=== PATIENT | male | born 1945 | race African-American/Black ===

== ENCOUNTER 2016-09-29 04:58 | Inpatient (IN) | payer MEDICARE, BC ==
[~2016-09-29] VITALS: Ht 182.9 cm; Wt 113.4 kg
[~2016-09-29 04:58] MED LIST: ALBU2TAB4 PO; ALLO100T PO; AMLO10TA80 PO; ASPI-1079 PO; FERR324T11 PO; FLUT1DIS INH; FLUT9.9S NS; FURO-151 PO; GABA-290 PO; HYDR-3927 PO; INSASP SUBCUT; LIP40 PO; LISI40TA4 PO; LORA10CA PO; LOSA50TA20 PO; METO-298 PO; POTA10CA42 PO; RED600CA5 PO; TAMS-11 PO
[2016-09-29] MEDS ORDERED: SODIUM CHLORIDE 0.9% 1,000 ML IV ONE (05:21)
[2016-09-29] MEDS ORDERED: ACETAMINOPHEN 325MG TABLET PO STA (05:21)
[2016-09-29] MEDS ORDERED: AZITHROMYCIN 500 MG in DEXT 5% WATER 250 ML IV ONE (05:30)
[2016-09-29] MEDS ORDERED: CEFTRIAXONE 1 G PREMIX 50 ML IV ONE (05:30)
[2016-09-29 05:43] LABS: HEMOGLOBIN. 10.7 g/dL (14.0-18.0); MEAN CORPUSCULAR HEMOGLOBIN 22.2 pg (28.0-32.0); MEAN CORPUSCULAR HGB CONC 30.7 g/dL (31.0-37.0); MEAN CORPUSCULAR VOLUME 72.5 fL (80.0-94.0); MEAN PLATELET VOLUME 7.9 fl (7.4-10.4); PLATELET 257 x1000/uL (130-400); RED BLOOD CELL COUNT 4.82 mill/uL (4.7-6.1); RED CELL DISTRIBUTION WIDTH 20.4 % (11.6-14.6); WHITE BLOOD COUNT 26.5 x1000/uL (4.5-11.0)
[2016-09-29 05:49] LABS: DIFFERENTIAL COMMENT 1
[2016-09-29 05:51] LABS: INR 1.1; PROTHROMBIN TIME 11.3 sec
[2016-09-29 06:00] LABS: ALANINE AMINOTRANSFERASE 13 IU/L (13-61); ALBUMIN 3.6 g/dL (3.4-5.0); ANION GAP 16; CALCIUM 8.9 mg/dL (8.5-10.1); CARBON DIOXIDE 28 mEq/L (21-32); CHLORIDE 99 mEq/L (98-107); INDEX HEMOLYSI 1 (1-3); INDEX ICTERIC 1 (1-4); INDEX LIPEMIC 1 (1-3); UREA NITROGEN BLOOD 47 mg/dL (7-21); eGFR 9 mL/min (>60)
[2016-09-29 06:02] LABS: TROPONIN I 0.03 ng/mL (0.00-0.04)
[2016-09-29 06:22] LABS: BG CARBOXYHEMOGLOBIN 0.3 % (0.5-1.5); BG FRACTION INSPIRED OXYGEN 28; BG HCO3 ACT 24.1 mmol/L (22.0-26.0); BG METHEMOGLOBIN 0.4 % (0.0-1.5); BG OXYHEMOGLOBIN 97.3 % (94.0-97.0); BG PCO2 33.2 mmHg (35.0-45.0); BG PH 7.478 (7.350-7.450); BG PO2 111.7 mmHg (75.0-100.0); BG SAMPLE SITE RIGHT RADIAL; BG TOTAL HEMOGLOBIN 11.9 g/dL (12.0-18.0); BG VENT MODE NASAL CANNULA
[2016-09-29 08:20] LABS: CLARITY URINE CLEAR (CLEAR); COLOR URINE YELLOW (YELLOW); GLUCOSE URINE 2+ (NEGATIVE); KETONES URINE TRACE (NEGATIVE); LEUKOCYTE ESTERASE URINE NEGATIVE (NEGATIVE); NITRITE URINE NEGATIVE (NEGATIVE); OCCULT BLOOD URINE 2+ (NEGATIVE); PH URINE 7.5 (4.5-8.0); PROTEIN URINE 3+ (NEGATIVE); SPECIFIC GRAVITY URINE 1.015 (1.005-1.030)
[2016-09-29 08:23] LABS: BACTERIA URINE NONE SEEN; CALCIUM PHOSPHATE CRYSTALS UR NONE SEEN /lpf; SQUAMOUS EPITHELIAL CELL URINE NONE SEEN /lpf (RARE/1+); WAXY CASTS URINE NONE SEEN /lpf; WBC URINE NONE SEEN /hpf (0-2); YEAST URINE NONE SEEN
[2016-09-29 08:36] LABS: PLATELET ESTIMATE NORMAL
[2016-09-29 08:37] LABS: ANISOCYTOSIS 2+
[2016-09-29] MEDS ORDERED: CLONIDINE 0.1MG TABLET PO PRN (08:45)
[2016-09-29] MEDS ORDERED: ACETAMINOPHEN 325MG TABLET PO PRN (08:45)
[2016-09-29] MEDS ORDERED: ONDANSETRON HCL 4MG/2ML VIAL IV PRN (08:45)
[2016-09-29] MEDS ORDERED: GUAIFENESIN 200MG/10ML SUGAR FREE UDC PO PRN (08:45)
[2016-09-29] MEDS ORDERED: HYDROCODONE/ACETAMINOPHEN 5/325MG TABLET PO PRN (09:00)
[2016-09-29 14:30] VITALS: BP 146/67
[2016-09-29 14:40] VITALS: BP 146/67
[2016-09-29] MEDS: AMLODIPINE 10MG TABLET PO SCH (15:05)
[2016-09-29] MEDS: TAMSULOSIN HCL 0.4MG SR CAPSULE PO SCH (15:05)
[2016-09-29] MEDS: FUROSEMIDE 40MG TABLET PO SCH (15:05)
[2016-09-29] MEDS: ASPIRIN 81MG TABLET PO SCH (15:06)
[2016-09-29] MEDS: LOSARTAN POTASSIUM 50 MG TABLET PO SCH (15:06)
[2016-09-29] MEDS: ALLOPURINOL 100 MG TABLET PO SCH (15:06)
[2016-09-29] MEDS: LISINOPRIL 40MG TABLET PO SCH (15:07)
[2016-09-29] MEDS: ALBUTEROL 2MG TABLET PO SCH (15:07)
[2016-09-29] MEDS: HYDROMORPHONE HCL/PF 2MG/ML CPJ IV PRN (15:08)
[2016-09-29] MEDS ORDERED: DEXTROSE 50% WATER 50ML SYRINGE IV PRN (15:15)
[2016-09-29 16:00] VITALS: BP 123/56
[2016-09-29 16:24] LABS: TROPONIN I 0.03 ng/mL (0.00-0.04)
[2016-09-29] MEDS: PIPERACILLIN/TAZ 2.25G PREMIX 50 ML IV SCH (16:41)
[2016-09-29] MEDS: ENOXAPARIN 30MG/0.3ML SYR SUBCUT SCH (16:41)
[2016-09-29] MEDS ORDERED: LEVOFLOXACIN 500MG PREMIX 100 ML IV SCH (17:00)
[2016-09-29] MEDS ORDERED: VANCOMYCIN 1,250 MG in DEXT 5% WATER 250 ML IV SCH (17:00)
[2016-09-29] MEDS: BLOOD SUGAR DIAGNOSTIC STRIP TEST SCH ×2 (17:05→21:23)
[2016-09-29] MEDS: METOPROLOL TARTRATE 25MG TABLET PO SCH (18:19)
[2016-09-29] MEDS: INSULIN LISPRO 100 UNITS/ML SUBCUT SCH ×2 (18:21→21:35)
[2016-09-29 20:00] VITALS: BP 102/49
[2016-09-29] MEDS: IPRATROPIUM/ALBUTEROL 0.5-3(2.5)MG/3ML NEB HHN SCH (20:46)
[2016-09-29] MEDS ORDERED: ATORVASTATIN CALCIUM 40MG TABLET PO SCH (21:00)
[2016-09-30] VITALS: BP 116/64
[2016-09-30 00:28] LABS: CREATINE KINASE MB FRACTION 1.9 ng/mL (0.5-3.6); TROPONIN I 0.03 ng/mL (0.00-0.04)
[2016-09-30] MEDS: IPRATROPIUM/ALBUTEROL 0.5-3(2.5)MG/3ML NEB HHN SCH ×6 (01:01→20:55)
[2016-09-30] MEDS: PIPERACILLIN/TAZ 2.25G PREMIX 50 ML IV SCH ×3 (02:32→16:36)
[2016-09-30 04:00] VITALS: BP 112/60
[2016-09-30] MEDS: METOPROLOL TARTRATE 25MG TABLET PO SCH ×2 (06:00→17:03)
[2016-09-30 06:21] LABS: BASOPHILS % 0.4 % (0.0-2.0); DIFFERENTIAL COMMENT 0; EOSINOPHILS % 0.4 % (0.0-5.0); HEMATOCRIT. 31.7 % (42.0-52.0); HEMOGLOBIN. 9.6 g/dL (14.0-18.0); LYMPHOCYTES % 8.9 % (20.0-50.0); MEAN CORPUSCULAR HEMOGLOBIN 22.1 pg (28.0-32.0); MEAN CORPUSCULAR HGB CONC 30.3 g/dL (31.0-37.0); MEAN CORPUSCULAR VOLUME 73.1 fL (80.0-94.0); MEAN PLATELET VOLUME 8.2 fl (7.4-10.4); MONOCYTES % 8.5 % (2.0-8.0); NEUTROPHILS % 81.8 % (40.0-76.0); PLATELET 219 x1000/uL (130-400); RED BLOOD CELL COUNT 4.34 mill/uL (4.7-6.1); RED CELL DISTRIBUTION WIDTH 20.6 % (11.6-14.6); WHITE BLOOD COUNT 16.6 x1000/uL (4.5-11.0)
[2016-09-30] MEDS: OMEPRAZOLE 20MG CAPSULE EXTENDED RELEASE PO SCH (06:39)
[2016-09-30] MEDS: BLOOD SUGAR DIAGNOSTIC STRIP TEST SCH ×3 (06:40→21:36)
[2016-09-30 06:49] LABS: ALANINE AMINOTRANSFERASE 15 IU/L (13-61); ALBUMIN 2.6 g/dL (3.4-5.0); ANION GAP 17; CALCIUM 8.3 mg/dL (8.5-10.1); CARBON DIOXIDE 28 mEq/L (21-32); CHLORIDE 96 mEq/L (98-107); CREATINE KINASE 362 IU/L (39-308); INDEX HEMOLYSI 1 (1-3); INDEX ICTERIC 1 (1-4); INDEX LIPEMIC 1 (1-3); LIPASE 144 IU/L (73-393); PHOSPHORUS 4.5 mg/dL (2.5-4.9); UREA NITROGEN BLOOD 61 mg/dL (7-21); eGFR 8 mL/min (>60)
[2016-09-30 07:00] LABS: THYROID STIMULATING HORMONE 0.23 uIU/mL (0.36-3.74)
[2016-09-30 08:00] VITALS: BP 135/64
[2016-09-30] MEDS: LOSARTAN POTASSIUM 50 MG TABLET PO SCH (08:14)
[2016-09-30] MEDS: LISINOPRIL 40MG TABLET PO SCH (08:14)
[2016-09-30] MEDS: AMLODIPINE 10MG TABLET PO SCH (08:14)
[2016-09-30] MEDS: FUROSEMIDE 40MG TABLET PO SCH (08:14)
[2016-09-30] MEDS: FOLIC ACID/VITAMIN B COMP W-C TABLET PO SCH (08:24)
[2016-09-30] MEDS: ASPIRIN 81MG TABLET PO SCH (08:24)
[2016-09-30] MEDS: ALBUTEROL 2MG TABLET PO SCH (08:24)
[2016-09-30] MEDS: ALLOPURINOL 100 MG TABLET PO SCH (08:24)
[2016-09-30] MEDS: TAMSULOSIN HCL 0.4MG SR CAPSULE PO SCH (08:26)
[2016-09-30] MEDS: HYDROMORPHONE HCL/PF 2MG/ML CPJ IV PRN ×2 (08:26→16:37)
[2016-09-30] MEDS: INSULIN LISPRO 100 UNITS/ML SUBCUT SCH ×4 (08:27→21:56)
[2016-09-30] MEDS ORDERED: FOLIC ACID/VITAMIN B COMP W-C TABLET PO SCH (09:00)
[2016-09-30] MEDS: SILVER SULFADIAZINE 1% CREAM 50GM TOP SCH (10:04)
[2016-09-30 12:00] VITALS: BP 112/45
[2016-09-30] MEDS ORDERED: VANCOMYCIN 1 G PREMIX 200 ML IV SCH (13:00)
[2016-09-30] MEDS: ENOXAPARIN 30MG/0.3ML SYR SUBCUT SCH (14:53)
[2016-09-30 16:00] VITALS: BP 118/56
[2016-09-30] MEDS ORDERED: INSULIN LISPRO 100 UNITS/ML SUBCUT NR (17:15)
[2016-09-30] MEDS ORDERED: INSULIN DETEMIR UD 100 UNITS/ML SYR SUBCUT NR (18:00)
[2016-09-30 20:00] VITALS: BP 115/60
[2016-10-01] VITALS: BP 136/62
[2016-10-01] MEDS: IPRATROPIUM/ALBUTEROL 0.5-3(2.5)MG/3ML NEB HHN SCH ×3 (00:41→13:05)
[2016-10-01 04:00] VITALS: BP 138/60
[2016-10-01] MEDS: METOPROLOL TARTRATE 25MG TABLET PO SCH (06:00)
[2016-10-01 06:37] LABS: CALCIUM 8.9 mg/dL (8.5-10.1)
[2016-10-01] MEDS: PIPERACILLIN/TAZ 2.25G PREMIX 50 ML IV SCH ×2 (06:59→09:00)
[2016-10-01] MEDS: BLOOD SUGAR DIAGNOSTIC STRIP TEST SCH ×2 (07:10→12:20)
[2016-10-01] MEDS: OMEPRAZOLE 20MG CAPSULE EXTENDED RELEASE PO SCH (07:12)
[2016-10-01 07:15] LABS: BASOPHILS % 0.5 % (0.0-2.0); DIFFERENTIAL COMMENT 0; EOSINOPHILS % 1.8 % (0.0-5.0); HEMATOCRIT. 32.7 % (42.0-52.0); HEMOGLOBIN. 10.2 g/dL (14.0-18.0); LYMPHOCYTES % 10.7 % (20.0-50.0); MEAN CORPUSCULAR HEMOGLOBIN 22.5 pg (28.0-32.0); MEAN CORPUSCULAR HGB CONC 31.1 g/dL (31.0-37.0); MEAN CORPUSCULAR VOLUME 72.4 fL (80.0-94.0); MEAN PLATELET VOLUME 8.5 fl (7.4-10.4); MONOCYTES % 10.8 % (2.0-8.0); NEUTROPHILS % 76.2 % (40.0-76.0); PLATELET 212 x1000/uL (130-400); RED BLOOD CELL COUNT 4.51 mill/uL (4.7-6.1); RED CELL DISTRIBUTION WIDTH 20.7 % (11.6-14.6); WHITE BLOOD COUNT 11.5 x1000/uL (4.5-11.0)
[2016-10-01 08:00] VITALS: BP 116/51
[2016-10-01] MEDS ORDERED: HYDROCODONE/ACETAMINOPHEN 5/325MG TABLET PO NR (08:45)
[2016-10-01] MEDS ORDERED: HYDROCODONE/ACETAMINOPHEN 5/325MG TABLET PO PRN (08:45)
[2016-10-01] MEDS: AMLODIPINE 10MG TABLET PO SCH (09:00)
[2016-10-01] MEDS: LISINOPRIL 40MG TABLET PO SCH (09:00)
[2016-10-01] MEDS: INSULIN LISPRO 100 UNITS/ML SUBCUT SCH ×2 (09:02→13:33)
[2016-10-01] MEDS: TAMSULOSIN HCL 0.4MG SR CAPSULE PO SCH (09:05)
[2016-10-01] MEDS: ALBUTEROL 2MG TABLET PO SCH (09:06)
[2016-10-01] MEDS: FUROSEMIDE 40MG TABLET PO SCH (09:06)
[2016-10-01] MEDS: FOLIC ACID/VITAMIN B COMP W-C TABLET PO SCH (09:06)
[2016-10-01] MEDS: LOSARTAN POTASSIUM 50 MG TABLET PO SCH (09:07)
[2016-10-01] MEDS: ALLOPURINOL 100 MG TABLET PO SCH (09:07)
[2016-10-01] MEDS: ASPIRIN 81MG TABLET PO SCH (09:07)
[2016-10-01] MEDS: SILVER SULFADIAZINE 1% CREAM 50GM TOP SCH (09:26)
[2016-10-01 12:31] VITALS: BP 105/58
== END 2016-10-01 15:50 | DRG 871 ==
LOC: ER 05:02 → 6WST 08:21
PROVIDERS: ADMIT Internal Medicine Geriatric Medicine; ATTEND Internal Medicine Geriatric Medicine
PROC: 5A1D00Z (ICD-10-PCS; principal; 2016-09-30)
DX: A41.9 Sepsis, unspecified organism (principal); G92 Toxic encephalopathy; N18.6 End stage renal disease; I13.2 Hypertensive heart and chronic kidney disease with heart failure and with stage 5 chronic kidney disease, or end stage renal disease; E44.1 Mild protein-calorie malnutrition; I50.32 Chronic diastolic (congestive) heart failure; L03.116 Cellulitis of left lower limb; L03.115 Cellulitis of right lower limb; E66.01 Morbid (severe) obesity due to excess calories; G47.33 Obstructive sleep apnea (adult) (pediatric); E11.42 Type 2 diabetes mellitus with diabetic polyneuropathy; E11.51 Type 2 diabetes mellitus with diabetic peripheral angiopathy without gangrene; J44.9 Chronic obstructive pulmonary disease, unspecified; K59.09 Other constipation; M19.90 Unspecified osteoarthritis, unspecified site; E11.622 Type 2 diabetes mellitus with other skin ulcer; I70.90 Unspecified atherosclerosis; E11.22 Type 2 diabetes mellitus with diabetic chronic kidney disease; L98.499 Non-pressure chronic ulcer of skin of other sites with unspecified severity; D63.8 Anemia in other chronic diseases classified elsewhere; E21.1 Secondary hyperparathyroidism, not elsewhere classified; G31.84 Mild cognitive impairment of uncertain or unknown etiology; L89.899 Pressure ulcer of other site, unspecified stage; L98.491 Non-pressure chronic ulcer of skin of other sites limited to breakdown of skin; I83.009 Varicose veins of unspecified lower extremity with ulcer of unspecified site; Z99.2 Dependence on renal dialysis; Z82.49 Family history of ischemic heart disease and other diseases of the circulatory system; Z83.3 Family history of diabetes mellitus; Z87.891 Personal history of nicotine dependence; Z79.899 Other long term (current) drug therapy; Z79.4 Long term (current) use of insulin; Z79.82 Long term (current) use of aspirin; Z68.33 Body mass index [BMI] 33.0-33.9, adult
CPT/HCPCS: 36415; 36600; 71010; 73590; 73630; 80048; 80053; 80061; 81001; 82375; 82550; 82553; 82805; 82962; 83036; 83605; 83690; 83970; 84100; 84443; 84484; 85025; 85610; 87040; 87086; 92610; 93005; 93306; 93880; 93923; 94640; 94664; 96365; 96366; 96367; 96372; 96375; 97162; 99285; J0456; J0696; J1170; J1650; J1815; J1956; J2543; J3370; J7030; J7040; J7060; J7620; A4315

== ENCOUNTER 2016-10-01 15:40 | Inpatient (IN) | payer MEDICARE, BC ==
[~2016-10-01] VITALS: Ht 182 cm; Wt 113.4 kg
[2016-10-01 17:49] VITALS: BP 119/57
[2016-10-01] MEDS ORDERED: DEXTROSE 50% WATER 50ML SYRINGE IV PRN (18:00)
[2016-10-01] MEDS ORDERED: IPRATROPIUM/ALBUTEROL 0.5-3(2.5)MG/3ML NEB HHN PRN (18:30)
[2016-10-01] MEDS ORDERED: LEVOFLOXACIN 500MG PREMIX 100 ML IV SCH (20:00)
[2016-10-01] MEDS ORDERED: IPRATROPIUM/ALBUTEROL 0.5-3(2.5)MG/3ML NEB HHN SCH (20:00)
[2016-10-01] MEDS: BLOOD SUGAR DIAGNOSTIC STRIP TEST SCH (21:00)
[2016-10-01] MEDS: ATORVASTATIN CALCIUM 40MG TABLET PO SCH (22:33)
[2016-10-01] MEDS: METOPROLOL TARTRATE 25MG TABLET PO SCH (22:35)
[2016-10-01] MEDS: INSULIN LISPRO 100 UNITS/ML SUBCUT SCH (22:42)
[2016-10-01] MEDS ORDERED: INSULIN LISPRO 100 UNITS/ML SUBCUT NR (23:00)
[2016-10-02] MEDS ORDERED: INSULIN DETEMIR UD 100 UNITS/ML SYR SUBCUT NR (01:00)
[2016-10-02] MEDS: PIPERACILLIN/TAZ 2.25G PREMIX 50 ML IV SCH ×3 (01:50→13:02)
[2016-10-02] MEDS: FAMOTIDINE 20MG TABLET PO SCH (06:45)
[2016-10-02] MEDS: BLOOD SUGAR DIAGNOSTIC STRIP TEST SCH ×4 (06:45→21:00)
[2016-10-02] MEDS: INSULIN LISPRO 100 UNITS/ML SUBCUT SCH ×7 (06:55→21:00)
[2016-10-02 06:58] LABS: CALCIUM 8.9 mg/dL (8.5-10.1); PHOSPHORUS 3.3 mg/dL (2.5-4.9)
[2016-10-02] MEDS ORDERED: OMEPRAZOLE 20MG CAPSULE EXTENDED RELEASE PO SCH (07:00)
[2016-10-02 07:09] LABS: BASOPHILS % 0.4 % (0.0-2.0); DIFFERENTIAL COMMENT 0; EOSINOPHILS % 1.3 % (0.0-5.0); HEMATOCRIT. 31.1 % (42.0-52.0); HEMOGLOBIN. 9.9 g/dL (14.0-18.0); LYMPHOCYTES % 10.6 % (20.0-50.0); MEAN CORPUSCULAR HEMOGLOBIN 22.8 pg (28.0-32.0); MEAN CORPUSCULAR HGB CONC 31.7 g/dL (31.0-37.0); MEAN CORPUSCULAR VOLUME 71.7 fL (80.0-94.0); MEAN PLATELET VOLUME 8.9 fl (7.4-10.4); MONOCYTES % 9.8 % (2.0-8.0); NEUTROPHILS % 77.9 % (40.0-76.0); PLATELET 231 x1000/uL (130-400); RED BLOOD CELL COUNT 4.33 mill/uL (4.7-6.1); RED CELL DISTRIBUTION WIDTH 20.1 % (11.6-14.6); WHITE BLOOD COUNT 9.4 x1000/uL (4.5-11.0)
[2016-10-02 08:00] VITALS: BP 117/51
[2016-10-02] MEDS ORDERED: HYDROCODONE/ACETAMINOPHEN 5/325MG TABLET PO NR (08:30)
[2016-10-02] MEDS: ENOXAPARIN 30MG/0.3ML SYR SUBCUT SCH (08:41)
[2016-10-02] MEDS: PARICALCITOL 5 MCG/ML 1ML IV SCH (08:42)
[2016-10-02] MEDS: FUROSEMIDE 40MG TABLET PO SCH (08:44)
[2016-10-02] MEDS: AMLODIPINE 10MG TABLET PO SCH (08:44)
[2016-10-02] MEDS: FOLIC ACID/VITAMIN B COMP W-C TABLET PO SCH (08:44)
[2016-10-02] MEDS: METOPROLOL TARTRATE 25MG TABLET PO SCH (08:44)
[2016-10-02] MEDS: ALLOPURINOL 100 MG TABLET PO SCH (08:44)
[2016-10-02] MEDS: TAMSULOSIN HCL 0.4MG SR CAPSULE PO SCH (08:45)
[2016-10-02] MEDS: LISINOPRIL 40MG TABLET PO SCH (08:45)
[2016-10-02] MEDS: ASPIRIN 81MG TABLET PO SCH (08:45)
[2016-10-02] MEDS: HYDROCODONE/ACETAMINOPHEN 5/325MG TABLET PO SCH (08:47)
[2016-10-02] MEDS: SILVER SULFADIAZINE 1% CREAM 50GM TOP SCH (08:59)
[2016-10-02] MEDS ORDERED: FOLIC ACID/VITAMIN B COMP W-C TABLET PO SCH (09:00)
[2016-10-02] MEDS ORDERED: LOSARTAN POTASSIUM 50 MG TABLET PO SCH (09:00)
[2016-10-02 10:29] LABS: PREALBUMIN 16.3 mg/dL (20.0-40.0)
[2016-10-02] MEDS: SULFACETAMIDE SODIUM 10% OPHTH DROPS 15ML RIGHTEYE SCH ×3 (10:49→18:06)
[2016-10-02] MEDS: INSULIN DETEMIR UD 100 UNITS/ML SYR SUBCUT SCH (11:49)
[2016-10-02] MEDS ORDERED: ALBUTEROL 6.7GM HFA INHALER ORI PRN (17:00)
[2016-10-02 20:00] VITALS: BP 141/67
[2016-10-03] MEDS: HYDROCODONE/ACETAMINOPHEN 5/325MG TABLET PO PRN (01:54)
[2016-10-03] MEDS: ATORVASTATIN CALCIUM 40MG TABLET PO SCH ×2 (03:53→21:36)
[2016-10-03] MEDS: PIPERACILLIN/TAZ 2.25G PREMIX 50 ML IV SCH ×4 (03:53→21:39)
[2016-10-03] MEDS: METOPROLOL TARTRATE 25MG TABLET PO SCH ×3 (03:53→21:37)
[2016-10-03] MEDS: EPOETIN ALFA 10000UNITS/ML VIAL SUBCUT SCH (03:54)
[2016-10-03] MEDS: SULFACETAMIDE SODIUM 10% OPHTH DROPS 15ML RIGHTEYE SCH ×5 (03:54→21:36)
[2016-10-03] MEDS: IPRATROPIUM/ALBUTEROL 0.5-3(2.5)MG/3ML NEB HHN SCH ×4 (04:38→20:41)
[2016-10-03] MEDS: FAMOTIDINE 20MG TABLET PO SCH (06:08)
[2016-10-03] MEDS: INSULIN LISPRO 100 UNITS/ML SUBCUT SCH ×7 (06:21→21:35)
[2016-10-03] MEDS: BLOOD SUGAR DIAGNOSTIC STRIP TEST SCH ×4 (06:21→21:08)
[2016-10-03 06:39] LABS: BASOPHILS % 0.8 % (0.0-2.0); DIFFERENTIAL COMMENT 0; EOSINOPHILS % 2.4 % (0.0-5.0); HEMATOCRIT. 32.2 % (42.0-52.0); HEMOGLOBIN. 10.2 g/dL (14.0-18.0); LYMPHOCYTES % 12.8 % (20.0-50.0); MEAN CORPUSCULAR HEMOGLOBIN 22.6 pg (28.0-32.0); MEAN CORPUSCULAR HGB CONC 31.7 g/dL (31.0-37.0); MEAN CORPUSCULAR VOLUME 71.4 fL (80.0-94.0); MEAN PLATELET VOLUME 8.6 fl (7.4-10.4); MONOCYTES % 11.2 % (2.0-8.0); NEUTROPHILS % 72.8 % (40.0-76.0); PLATELET 239 x1000/uL (130-400); RED BLOOD CELL COUNT 4.51 mill/uL (4.7-6.1); RED CELL DISTRIBUTION WIDTH 20.7 % (11.6-14.6); WHITE BLOOD COUNT 9.5 x1000/uL (4.5-11.0)
[2016-10-03 06:46] LABS: CALCIUM 9.3 mg/dL (8.5-10.1)
[2016-10-03 08:00] VITALS: BP 142/90
[2016-10-03] MEDS: ALLOPURINOL 100 MG TABLET PO SCH (08:45)
[2016-10-03] MEDS: ASPIRIN 81MG TABLET PO SCH (08:45)
[2016-10-03] MEDS: ENOXAPARIN 30MG/0.3ML SYR SUBCUT SCH (08:45)
[2016-10-03] MEDS: HYDROCODONE/ACETAMINOPHEN 5/325MG TABLET PO SCH (08:46)
[2016-10-03] MEDS: TAMSULOSIN HCL 0.4MG SR CAPSULE PO SCH (08:47)
[2016-10-03] MEDS: FUROSEMIDE 40MG TABLET PO SCH (08:48)
[2016-10-03] MEDS: LISINOPRIL 40MG TABLET PO SCH (08:48)
[2016-10-03] MEDS: AMLODIPINE 10MG TABLET PO SCH (08:48)
[2016-10-03] MEDS: FOLIC ACID/VITAMIN B COMP W-C TABLET PO SCH (08:48)
[2016-10-03] MEDS: SILVER SULFADIAZINE 1% CREAM 50GM TOP SCH (08:54)
[2016-10-03] MEDS ORDERED: ZOLPIDEM TARTRATE 5MG TABLET PO PRN (09:00)
[2016-10-03] MEDS: INSULIN DETEMIR UD 100 UNITS/ML SYR SUBCUT SCH (11:12)
[2016-10-03] MEDS: GABAPENTIN 100MG CAPSULE PO SCH ×2 (13:05→21:37)
[2016-10-03] MEDS: LIDOCAINE HCL 4% CREAM 76GM TUBE TP SCH (18:05)
[2016-10-03] MEDS: ALBUTEROL 2MG TABLET PO SCH (19:47)
[2016-10-03 20:00] VITALS: BP 143/103
[2016-10-04] MEDS: IPRATROPIUM/ALBUTEROL 0.5-3(2.5)MG/3ML NEB HHN SCH ×4 (02:00→20:03)
[2016-10-04] MEDS: HYDROCODONE/ACETAMINOPHEN 5/325MG TABLET PO PRN ×2 (05:04→20:13)
[2016-10-04] MEDS: LIDOCAINE HCL 4% CREAM 76GM TUBE TP SCH ×2 (05:08→16:45)
[2016-10-04] MEDS: GABAPENTIN 100MG CAPSULE PO SCH ×3 (05:09→21:29)
[2016-10-04] MEDS: BLOOD SUGAR DIAGNOSTIC STRIP TEST SCH ×4 (05:58→21:30)
[2016-10-04] MEDS: PIPERACILLIN/TAZ 2.25G PREMIX 50 ML IV SCH ×3 (05:59→21:55)
[2016-10-04] MEDS: SILVER SULFADIAZINE 1% CREAM 50GM TOP SCH (07:06)
[2016-10-04 07:09] LABS: BASOPHILS % 0.9 % (0.0-2.0); DIFFERENTIAL COMMENT 0; EOSINOPHILS % 2.9 % (0.0-5.0); HEMATOCRIT. 32.3 % (42.0-52.0); HEMOGLOBIN. 10.2 g/dL (14.0-18.0); LYMPHOCYTES % 15.8 % (20.0-50.0); MEAN CORPUSCULAR HEMOGLOBIN 22.7 pg (28.0-32.0); MEAN CORPUSCULAR HGB CONC 31.6 g/dL (31.0-37.0); MEAN CORPUSCULAR VOLUME 71.8 fL (80.0-94.0); MEAN PLATELET VOLUME 8.5 fl (7.4-10.4); MONOCYTES % 11.3 % (2.0-8.0); NEUTROPHILS % 69.1 % (40.0-76.0); PLATELET 274 x1000/uL (130-400); RED CELL DISTRIBUTION WIDTH 21.2 % (11.6-14.6); WHITE BLOOD COUNT 8.4 x1000/uL (4.5-11.0)
[2016-10-04] MEDS: FAMOTIDINE 20MG TABLET PO SCH (07:21)
[2016-10-04] MEDS: INSULIN LISPRO 100 UNITS/ML SUBCUT SCH ×7 (07:22→21:51)
[2016-10-04 07:23] LABS: ALANINE AMINOTRANSFERASE 18 IU/L (13-61); ALBUMIN 2.7 g/dL (3.4-5.0); ANION GAP 19; CALCIUM 8.8 mg/dL (8.5-10.1); CARBON DIOXIDE 24 mEq/L (21-32); CHLORIDE 99 mEq/L (98-107); HDL CHOLESTEROL 33 mg/dL (40-59); INDEX HEMOLYSI 1 (1-3); INDEX ICTERIC 1 (1-4); INDEX LIPEMIC 1 (1-3); IRON 21 ug/dL (50-175); LDL CHOLESTEROL 69 mg/dL (5-100); MAGNESIUM 2.1 mg/dL (1.8-2.4); PHOSPHORUS 4.1 mg/dL (2.5-4.9); TOTAL IRON BINDING CAPACITY 174 ug/dL (250-450); TRIGLYCERIDE 129 mg/dL (0-150); UREA NITROGEN BLOOD 40 mg/dL (7-21); eGFR 11 mL/min (>60)
[2016-10-04 07:30] LABS: THYROID STIMULATING HORMONE 0.68 uIU/mL (0.36-3.74)
[2016-10-04 07:37] LABS: FERRITIN 301 ng/mL (22-322)
[2016-10-04 08:00] VITALS: BP 97/57
[2016-10-04] MEDS: FOLIC ACID/VITAMIN B COMP W-C TABLET PO SCH (08:05)
[2016-10-04] MEDS: TAMSULOSIN HCL 0.4MG SR CAPSULE PO SCH (08:06)
[2016-10-04 08:07] LABS: INDEX HEMOLYSI 1 (1-3)
[2016-10-04] MEDS: FUROSEMIDE 40MG TABLET PO SCH (08:07)
[2016-10-04] MEDS: ASPIRIN 81MG TABLET PO SCH (08:07)
[2016-10-04] MEDS: HYDROCODONE/ACETAMINOPHEN 5/325MG TABLET PO SCH (08:08)
[2016-10-04] MEDS: SULFACETAMIDE SODIUM 10% OPHTH DROPS 15ML RIGHTEYE SCH ×4 (08:08→21:30)
[2016-10-04] MEDS: ENOXAPARIN 30MG/0.3ML SYR SUBCUT SCH (08:15)
[2016-10-04] MEDS: METOPROLOL TARTRATE 25MG TABLET PO SCH ×2 (08:21→21:33)
[2016-10-04] MEDS: AMLODIPINE 10MG TABLET PO SCH (08:21)
[2016-10-04] MEDS: LISINOPRIL 40MG TABLET PO SCH (08:21)
[2016-10-04] MEDS: ALLOPURINOL 100 MG TABLET PO SCH (08:21)
[2016-10-04 08:22] LABS: PROSTRATE SPECIFIC AG TOTAL 0.68 ng/mL (0.0-4.0); VITAMIN B12 SERUM 1574 pg/mL (211-911)
[2016-10-04 08:33] LABS: FOLIC ACID (FOLATE) SERUM > 20.00 ng/mL (>5.38)
[2016-10-04] MEDS: ALBUTEROL 2MG TABLET PO SCH (09:00)
[2016-10-04] MEDS: PARICALCITOL 5 MCG/ML 1ML IV SCH (12:11)
[2016-10-04] MEDS: INSULIN DETEMIR UD 100 UNITS/ML SYR SUBCUT SCH (12:16)
[2016-10-04] MEDS: FERROUS SULFATE 325MG TABLET PO SCH (18:19)
[2016-10-04] MEDS: EPOETIN ALFA 10000UNITS/ML VIAL SUBCUT SCH (21:29)
[2016-10-04] MEDS: ATORVASTATIN CALCIUM 40MG TABLET PO SCH (21:29)
[2016-10-05] MEDS: IPRATROPIUM/ALBUTEROL 0.5-3(2.5)MG/3ML NEB HHN SCH ×4 (01:17→21:30)
[2016-10-05] MEDS: PIPERACILLIN/TAZ 2.25G PREMIX 50 ML IV SCH ×2 (05:19→14:44)
[2016-10-05] MEDS: GABAPENTIN 100MG CAPSULE PO SCH ×3 (05:19→22:14)
[2016-10-05] MEDS: FAMOTIDINE 20MG TABLET PO SCH (06:30)
[2016-10-05] MEDS: LIDOCAINE HCL 4% CREAM 76GM TUBE TP SCH ×2 (06:30→16:50)
[2016-10-05] MEDS: BLOOD SUGAR DIAGNOSTIC STRIP TEST SCH ×4 (06:30→21:00)
[2016-10-05] MEDS: INSULIN LISPRO 100 UNITS/ML SUBCUT SCH ×7 (06:39→22:20)
[2016-10-05 08:00] VITALS: BP 108/58
[2016-10-05] MEDS: TAMSULOSIN HCL 0.4MG SR CAPSULE PO SCH (08:43)
[2016-10-05] MEDS: FERROUS SULFATE 325MG TABLET PO SCH ×3 (08:43→16:49)
[2016-10-05] MEDS: FUROSEMIDE 40MG TABLET PO SCH (08:43)
[2016-10-05] MEDS: ASPIRIN 81MG TABLET PO SCH (08:43)
[2016-10-05] MEDS: FOLIC ACID/VITAMIN B COMP W-C TABLET PO SCH (08:43)
[2016-10-05] MEDS: AMLODIPINE 10MG TABLET PO SCH (08:43)
[2016-10-05] MEDS: METOPROLOL TARTRATE 25MG TABLET PO SCH ×2 (08:43→22:15)
[2016-10-05] MEDS: LISINOPRIL 40MG TABLET PO SCH (08:44)
[2016-10-05] MEDS: ALLOPURINOL 100 MG TABLET PO SCH (08:47)
[2016-10-05] MEDS: SILVER SULFADIAZINE 1% CREAM 50GM TOP SCH (08:48)
[2016-10-05] MEDS: ENOXAPARIN 30MG/0.3ML SYR SUBCUT SCH (08:48)
[2016-10-05] MEDS: SULFACETAMIDE SODIUM 10% OPHTH DROPS 15ML RIGHTEYE SCH ×4 (08:48→22:14)
[2016-10-05] MEDS: ALBUTEROL 2MG TABLET PO SCH (08:50)
[2016-10-05] MEDS: HYDROCODONE/ACETAMINOPHEN 5/325MG TABLET PO SCH (08:55)
[2016-10-05] MEDS: INSULIN DETEMIR UD 100 UNITS/ML SYR SUBCUT SCH (11:52)
[2016-10-05] MEDS ORDERED: INSULIN LISPRO 100 UNITS/ML SUBCUT NR (17:15)
[2016-10-05] MEDS ORDERED: INSULIN DETEMIR UD 100 UNITS/ML SYR SUBCUT NR (19:00)
[2016-10-05 20:00] VITALS: BP 137/62
[2016-10-05] MEDS: ATORVASTATIN CALCIUM 40MG TABLET PO SCH (22:14)
[2016-10-06] MEDS: IPRATROPIUM/ALBUTEROL 0.5-3(2.5)MG/3ML NEB HHN SCH ×4 (03:30→21:05)
[2016-10-06] MEDS: GABAPENTIN 100MG CAPSULE PO SCH ×3 (06:32→22:24)
[2016-10-06] MEDS: FAMOTIDINE 20MG TABLET PO SCH (06:33)
[2016-10-06] MEDS: BLOOD SUGAR DIAGNOSTIC STRIP TEST SCH ×4 (06:33→21:00)
[2016-10-06] MEDS: LIDOCAINE HCL 4% CREAM 76GM TUBE TP SCH ×2 (06:34→18:06)
[2016-10-06] MEDS: INSULIN LISPRO 100 UNITS/ML SUBCUT SCH ×7 (06:35→22:27)
[2016-10-06 08:00] VITALS: BP 138/73
[2016-10-06] MEDS: ENOXAPARIN 30MG/0.3ML SYR SUBCUT SCH (09:04)
[2016-10-06] MEDS: ALBUTEROL 2MG TABLET PO SCH (09:04)
[2016-10-06] MEDS: SULFACETAMIDE SODIUM 10% OPHTH DROPS 15ML RIGHTEYE SCH ×4 (09:04→22:25)
[2016-10-06] MEDS: ASPIRIN 81MG TABLET PO SCH (09:06)
[2016-10-06] MEDS: TAMSULOSIN HCL 0.4MG SR CAPSULE PO SCH (09:06)
[2016-10-06] MEDS: ALLOPURINOL 100 MG TABLET PO SCH (09:06)
[2016-10-06] MEDS: FOLIC ACID/VITAMIN B COMP W-C TABLET PO SCH (09:06)
[2016-10-06] MEDS: LISINOPRIL 40MG TABLET PO SCH (09:07)
[2016-10-06] MEDS: METOPROLOL TARTRATE 25MG TABLET PO SCH ×2 (09:07→22:29)
[2016-10-06] MEDS: FERROUS SULFATE 325MG TABLET PO SCH ×3 (09:07→18:06)
[2016-10-06] MEDS: FUROSEMIDE 40MG TABLET PO SCH (09:07)
[2016-10-06] MEDS: HYDROCODONE/ACETAMINOPHEN 5/325MG TABLET PO SCH (09:08)
[2016-10-06] MEDS: AMLODIPINE 10MG TABLET PO SCH (09:09)
[2016-10-06] MEDS: SILVER SULFADIAZINE 1% CREAM 50GM TOP SCH (09:11)
[2016-10-06] MEDS ORDERED: INSULIN DETEMIR UD 100 UNITS/ML SYR SUBCUT SCH (10:00)
[2016-10-06 20:00] VITALS: BP 117/57
[2016-10-06] MEDS: ATORVASTATIN CALCIUM 40MG TABLET PO SCH (22:24)
[2016-10-06] MEDS: INSULIN DETEMIR UD 100 UNITS/ML SYR SUBCUT SCH (22:26)
[2016-10-07] MEDS: IPRATROPIUM/ALBUTEROL 0.5-3(2.5)MG/3ML NEB HHN SCH ×3 (02:21→13:01)
[2016-10-07] MEDS: BLOOD SUGAR DIAGNOSTIC STRIP TEST SCH ×4 (06:36→21:00)
[2016-10-07] MEDS: FAMOTIDINE 20MG TABLET PO SCH (06:36)
[2016-10-07] MEDS: GABAPENTIN 100MG CAPSULE PO SCH ×2 (06:36→13:13)
[2016-10-07] MEDS: INSULIN LISPRO 100 UNITS/ML SUBCUT SCH ×6 (06:38→17:35)
[2016-10-07] MEDS: LIDOCAINE HCL 4% CREAM 76GM TUBE TP SCH ×2 (06:41→17:04)
[2016-10-07] MEDS: ENOXAPARIN 30MG/0.3ML SYR SUBCUT SCH (08:28)
[2016-10-07] MEDS: ALBUTEROL 2MG TABLET PO SCH (08:28)
[2016-10-07] MEDS: TAMSULOSIN HCL 0.4MG SR CAPSULE PO SCH (08:28)
[2016-10-07] MEDS: ASPIRIN 81MG TABLET PO SCH (08:29)
[2016-10-07] MEDS: ALLOPURINOL 100 MG TABLET PO SCH (08:29)
[2016-10-07] MEDS: FOLIC ACID/VITAMIN B COMP W-C TABLET PO SCH (08:29)
[2016-10-07] MEDS: FUROSEMIDE 40MG TABLET PO SCH (08:29)
[2016-10-07] MEDS: FERROUS SULFATE 325MG TABLET PO SCH ×3 (08:29→17:04)
[2016-10-07] MEDS: HYDROCODONE/ACETAMINOPHEN 5/325MG TABLET PO SCH (08:32)
[2016-10-07] MEDS: PARICALCITOL 5 MCG/ML 1ML IV SCH (08:39)
[2016-10-07 09:00] VITALS: BP 137/81
[2016-10-07] MEDS: METOPROLOL TARTRATE 25MG TABLET PO SCH (09:00)
[2016-10-07] MEDS: AMLODIPINE 10MG TABLET PO SCH (09:00)
[2016-10-07] MEDS: LISINOPRIL 40MG TABLET PO SCH (09:00)
[2016-10-07] MEDS: SILVER SULFADIAZINE 1% CREAM 50GM TOP SCH (10:42)
[2016-10-07] MEDS: SULFACETAMIDE SODIUM 10% OPHTH DROPS 15ML RIGHTEYE SCH ×3 (10:42→17:04)
[2016-10-07] MEDS: INSULIN DETEMIR UD 100 UNITS/ML SYR SUBCUT SCH (10:44)
[2016-10-07 20:00] VITALS: BP 141/79
[2016-10-08] MEDS: IRON SUCROSE COMPLEX 100 MG in SODIUM CHLORIDE 0.9% 100 ML IV SCH ×2 (00:40→21:29)
[2016-10-08] MEDS: GABAPENTIN 100MG CAPSULE PO SCH ×4 (00:40→21:33)
[2016-10-08] MEDS: ATORVASTATIN CALCIUM 40MG TABLET PO SCH ×2 (00:40→21:31)
[2016-10-08] MEDS: METOPROLOL TARTRATE 25MG TABLET PO SCH ×3 (00:41→21:32)
[2016-10-08] MEDS: SULFACETAMIDE SODIUM 10% OPHTH DROPS 15ML RIGHTEYE SCH ×5 (00:41→21:32)
[2016-10-08] MEDS: INSULIN DETEMIR UD 100 UNITS/ML SYR SUBCUT SCH ×3 (00:55→21:37)
[2016-10-08] MEDS: INSULIN LISPRO 100 UNITS/ML SUBCUT SCH ×7 (00:59→21:36)
[2016-10-08] MEDS: IPRATROPIUM/ALBUTEROL 0.5-3(2.5)MG/3ML NEB HHN SCH ×4 (01:14→21:33)
[2016-10-08] MEDS: EPOETIN ALFA 10000UNITS/ML VIAL SUBCUT SCH (02:36)
[2016-10-08 07:00] LABS: BASOPHILS % 0.8 % (0.0-2.0); DIFFERENTIAL COMMENT 0; EOSINOPHILS % 2.8 % (0.0-5.0); HEMATOCRIT. 29.5 % (42.0-52.0); HEMOGLOBIN. 9.3 g/dL (14.0-18.0); LYMPHOCYTES % 9.1 % (20.0-50.0); MEAN CORPUSCULAR HEMOGLOBIN 22.4 pg (28.0-32.0); MEAN CORPUSCULAR HGB CONC 31.4 g/dL (31.0-37.0); MEAN CORPUSCULAR VOLUME 71.4 fL (80.0-94.0); MEAN PLATELET VOLUME 7.8 fl (7.4-10.4); MONOCYTES % 7.4 % (2.0-8.0); NEUTROPHILS % 79.9 % (40.0-76.0); PLATELET 394 x1000/uL (130-400); RED BLOOD CELL COUNT 4.14 mill/uL (4.7-6.1); RED CELL DISTRIBUTION WIDTH 20.6 % (11.6-14.6)
[2016-10-08] MEDS: BLOOD SUGAR DIAGNOSTIC STRIP TEST SCH ×4 (07:05→21:34)
[2016-10-08 07:06] LABS: ALANINE AMINOTRANSFERASE 20 IU/L (13-61); ALBUMIN 2.6 g/dL (3.4-5.0); ANION GAP 14; CALCIUM 8.1 mg/dL (8.5-10.1); CARBON DIOXIDE 28 mEq/L (21-32); CHLORIDE 98 mEq/L (98-107); INDEX HEMOLYSI 1 (1-3); INDEX ICTERIC 1 (1-4); INDEX LIPEMIC 1 (1-3); PHOSPHORUS 4.6 mg/dL (2.5-4.9); UREA NITROGEN BLOOD 25 mg/dL (7-21); eGFR 12 mL/min (>60)
[2016-10-08] MEDS: FAMOTIDINE 20MG TABLET PO SCH (07:11)
[2016-10-08] MEDS: LIDOCAINE HCL 4% CREAM 76GM TUBE TP SCH ×2 (07:13→17:09)
[2016-10-08 08:00] VITALS: BP 112/62
[2016-10-08] MEDS: FOLIC ACID/VITAMIN B COMP W-C TABLET PO SCH (08:38)
[2016-10-08] MEDS: ASPIRIN 81MG TABLET PO SCH (08:38)
[2016-10-08] MEDS: FUROSEMIDE 40MG TABLET PO SCH (08:38)
[2016-10-08] MEDS: ALLOPURINOL 100 MG TABLET PO SCH (08:38)
[2016-10-08] MEDS: TAMSULOSIN HCL 0.4MG SR CAPSULE PO SCH (08:38)
[2016-10-08] MEDS: FERROUS SULFATE 325MG TABLET PO SCH ×3 (08:39→17:08)
[2016-10-08] MEDS: ALBUTEROL 2MG TABLET PO SCH (08:39)
[2016-10-08] MEDS: ENOXAPARIN 30MG/0.3ML SYR SUBCUT SCH (08:39)
[2016-10-08] MEDS: HYDROCODONE/ACETAMINOPHEN 5/325MG TABLET PO SCH (08:41)
[2016-10-08] MEDS: AMLODIPINE 10MG TABLET PO SCH (08:42)
[2016-10-08] MEDS: LISINOPRIL 40MG TABLET PO SCH (08:42)
[2016-10-08] MEDS: SILVER SULFADIAZINE 1% CREAM 50GM TOP SCH (08:48)
[2016-10-08 13:07] LABS: 25-HYDROXY VITAMIN D3 51 ng/mL (.)
[2016-10-08 20:00] VITALS: BP 133/74
[2016-10-09] MEDS: IPRATROPIUM/ALBUTEROL 0.5-3(2.5)MG/3ML NEB HHN SCH ×4 (00:22→21:25)
[2016-10-09] MEDS: FAMOTIDINE 20MG TABLET PO SCH (06:31)
[2016-10-09] MEDS: GABAPENTIN 100MG CAPSULE PO SCH ×2 (06:31→17:14)
[2016-10-09] MEDS: LIDOCAINE HCL 4% CREAM 76GM TUBE TP SCH ×2 (06:31→18:00)
[2016-10-09] MEDS: BLOOD SUGAR DIAGNOSTIC STRIP TEST SCH ×4 (06:31→21:00)
[2016-10-09] MEDS: INSULIN LISPRO 100 UNITS/ML SUBCUT SCH ×6 (06:38→17:29)
[2016-10-09 08:00] VITALS: BP 140/71
[2016-10-09] MEDS: PARICALCITOL 5 MCG/ML 1ML IV SCH ×2 (10:00→11:05)
[2016-10-09] MEDS ORDERED: INSULIN DETEMIR UD 100 UNITS/ML SYR SUBCUT SCH ×2 (10:00→22:00)
[2016-10-09] MEDS: LISINOPRIL 40MG TABLET PO SCH (10:48)
[2016-10-09] MEDS: FERROUS SULFATE 325MG TABLET PO SCH ×3 (10:48→17:28)
[2016-10-09] MEDS: METOPROLOL TARTRATE 25MG TABLET PO SCH (10:49)
[2016-10-09] MEDS: TAMSULOSIN HCL 0.4MG SR CAPSULE PO SCH (10:50)
[2016-10-09] MEDS: FOLIC ACID/VITAMIN B COMP W-C TABLET PO SCH (10:50)
[2016-10-09] MEDS: ASPIRIN 81MG TABLET PO SCH (10:50)
[2016-10-09] MEDS: FUROSEMIDE 40MG TABLET PO SCH (10:50)
[2016-10-09] MEDS: HYDROCODONE/ACETAMINOPHEN 5/325MG TABLET PO SCH ×2 (10:51→23:22)
[2016-10-09] MEDS: ALLOPURINOL 100 MG TABLET PO SCH (10:52)
[2016-10-09] MEDS: ENOXAPARIN 30MG/0.3ML SYR SUBCUT SCH (10:52)
[2016-10-09] MEDS: AMLODIPINE 10MG TABLET PO SCH (11:16)
[2016-10-09] MEDS: SULFACETAMIDE SODIUM 10% OPHTH DROPS 15ML RIGHTEYE SCH (12:12)
[2016-10-09] MEDS: SILVER SULFADIAZINE 1% CREAM 50GM TOP SCH (12:12)
[2016-10-09] MEDS: ALBUTEROL 2MG TABLET PO SCH (12:16)
[2016-10-09 20:00] VITALS: BP 122/55
[2016-10-10] MEDS: GABAPENTIN 100MG CAPSULE PO SCH ×4 (00:48→21:44)
[2016-10-10] MEDS: EPOETIN ALFA 10000UNITS/ML VIAL SUBCUT SCH (00:48)
[2016-10-10] MEDS: ATORVASTATIN CALCIUM 40MG TABLET PO SCH ×2 (00:49→21:43)
[2016-10-10] MEDS: IRON SUCROSE COMPLEX 100 MG in SODIUM CHLORIDE 0.9% 100 ML IV SCH ×2 (00:49→21:43)
[2016-10-10] MEDS: METOPROLOL TARTRATE 25MG TABLET PO SCH ×3 (00:50→21:43)
[2016-10-10] MEDS: INSULIN LISPRO 100 UNITS/ML SUBCUT SCH ×9 (01:04→21:00)
[2016-10-10] MEDS: IPRATROPIUM/ALBUTEROL 0.5-3(2.5)MG/3ML NEB HHN SCH ×4 (02:06→20:34)
[2016-10-10 06:31] LABS: BASOPHILS % 0.8 % (0.0-2.0); DIFFERENTIAL COMMENT 0; EOSINOPHILS % 3.4 % (0.0-5.0); HEMATOCRIT. 29.5 % (42.0-52.0); HEMOGLOBIN. 9.3 g/dL (14.0-18.0); LYMPHOCYTES % 11.4 % (20.0-50.0); MEAN CORPUSCULAR HEMOGLOBIN 22.6 pg (28.0-32.0); MEAN CORPUSCULAR HGB CONC 31.4 g/dL (31.0-37.0); MONOCYTES % 7.5 % (2.0-8.0); NEUTROPHILS % 76.9 % (40.0-76.0); PLATELET 391 x1000/uL (130-400); RED BLOOD CELL COUNT 4.09 mill/uL (4.7-6.1); RED CELL DISTRIBUTION WIDTH 20.8 % (11.6-14.6); WHITE BLOOD COUNT 11.1 x1000/uL (4.5-11.0)
[2016-10-10] MEDS: LIDOCAINE HCL 4% CREAM 76GM TUBE TP SCH ×2 (06:39→17:51)
[2016-10-10] MEDS: BLOOD SUGAR DIAGNOSTIC STRIP TEST SCH ×4 (06:39→21:44)
[2016-10-10] MEDS: FAMOTIDINE 20MG TABLET PO SCH (06:39)
[2016-10-10 07:13] LABS: CALCIUM 8.8 mg/dL (8.5-10.1)
[2016-10-10 08:01] VITALS: BP 144/73
[2016-10-10] MEDS: ENOXAPARIN 30MG/0.3ML SYR SUBCUT SCH (08:42)
[2016-10-10] MEDS: ALBUTEROL 2MG TABLET PO SCH (08:42)
[2016-10-10] MEDS: ASPIRIN 81MG TABLET PO SCH (08:42)
[2016-10-10] MEDS: FUROSEMIDE 40MG TABLET PO SCH (08:42)
[2016-10-10] MEDS: FOLIC ACID/VITAMIN B COMP W-C TABLET PO SCH (08:42)
[2016-10-10] MEDS: ALLOPURINOL 100 MG TABLET PO SCH (08:42)
[2016-10-10] MEDS: TAMSULOSIN HCL 0.4MG SR CAPSULE PO SCH (08:43)
[2016-10-10] MEDS: SILVER SULFADIAZINE 1% CREAM 50GM TOP SCH (08:43)
[2016-10-10] MEDS: LISINOPRIL 40MG TABLET PO SCH (08:43)
[2016-10-10] MEDS: FERROUS SULFATE 325MG TABLET PO SCH ×3 (08:43→17:50)
[2016-10-10] MEDS: AMLODIPINE 10MG TABLET PO SCH (09:49)
[2016-10-10] MEDS: INSULIN DETEMIR UD 100 UNITS/ML SYR SUBCUT SCH ×2 (11:21→22:58)
[2016-10-10 20:00] VITALS: BP 161/79
[2016-10-11] MEDS: IPRATROPIUM/ALBUTEROL 0.5-3(2.5)MG/3ML NEB HHN SCH ×4 (01:43→22:24)
[2016-10-11] MEDS: LIDOCAINE HCL 4% CREAM 76GM TUBE TP SCH ×2 (06:30→17:41)
[2016-10-11] MEDS: GABAPENTIN 100MG CAPSULE PO SCH ×3 (06:30→22:05)
[2016-10-11] MEDS: BLOOD SUGAR DIAGNOSTIC STRIP TEST SCH ×4 (06:30→21:00)
[2016-10-11] MEDS: FAMOTIDINE 20MG TABLET PO SCH (06:30)
[2016-10-11] MEDS: INSULIN LISPRO 100 UNITS/ML SUBCUT SCH ×7 (06:32→22:15)
[2016-10-11 07:01] LABS: BASOPHILS % 0.4 % (0.0-2.0); DIFFERENTIAL COMMENT 0; EOSINOPHILS % 2.7 % (0.0-5.0); HEMOGLOBIN. 8.8 g/dL (14.0-18.0); LYMPHOCYTES % 8.3 % (20.0-50.0); MEAN CORPUSCULAR HEMOGLOBIN 22.6 pg (28.0-32.0); MEAN CORPUSCULAR HGB CONC 31.6 g/dL (31.0-37.0); MEAN CORPUSCULAR VOLUME 71.5 fL (80.0-94.0); MEAN PLATELET VOLUME 7.5 fl (7.4-10.4); MONOCYTES % 7.2 % (2.0-8.0); NEUTROPHILS % 81.4 % (40.0-76.0); PLATELET 413 x1000/uL (130-400); RED BLOOD CELL COUNT 3.91 mill/uL (4.7-6.1); RED CELL DISTRIBUTION WIDTH 20.9 % (11.6-14.6); WHITE BLOOD COUNT 14.5 x1000/uL (4.5-11.0)
[2016-10-11 08:00] VITALS: BP 143/65
[2016-10-11] MEDS: SILVER SULFADIAZINE 1% CREAM 50GM TOP SCH (08:22)
[2016-10-11] MEDS: FUROSEMIDE 40MG TABLET PO SCH (08:22)
[2016-10-11] MEDS: TAMSULOSIN HCL 0.4MG SR CAPSULE PO SCH (08:23)
[2016-10-11] MEDS: FERROUS SULFATE 325MG TABLET PO SCH ×3 (08:23→17:37)
[2016-10-11] MEDS: ALBUTEROL 2MG TABLET PO SCH (08:23)
[2016-10-11] MEDS: FOLIC ACID/VITAMIN B COMP W-C TABLET PO SCH (08:23)
[2016-10-11] MEDS: ALLOPURINOL 100 MG TABLET PO SCH (08:23)
[2016-10-11] MEDS: ASPIRIN 81MG TABLET PO SCH (08:23)
[2016-10-11] MEDS: ENOXAPARIN 30MG/0.3ML SYR SUBCUT SCH (08:24)
[2016-10-11] MEDS: HYDROCODONE/ACETAMINOPHEN 5/325MG TABLET PO SCH (08:25)
[2016-10-11 08:45] LABS: CALCIUM 8.4 mg/dL (8.5-10.1)
[2016-10-11] MEDS: METOPROLOL TARTRATE 25MG TABLET PO SCH ×2 (09:00→22:05)
[2016-10-11] MEDS: LISINOPRIL 40MG TABLET PO SCH (09:00)
[2016-10-11] MEDS: AMLODIPINE 10MG TABLET PO SCH (09:00)
[2016-10-11] MEDS: LACTOBACILLUS GG CAPSULE PO SCH (10:32)
[2016-10-11] MEDS: INSULIN DETEMIR UD 100 UNITS/ML SYR SUBCUT SCH ×2 (10:33→22:16)
[2016-10-11] MEDS: PARICALCITOL 5 MCG/ML 1ML IV SCH (12:32)
[2016-10-11] MEDS: PIPERACILLIN/TAZ 2.25G PREMIX 50 ML IV SCH ×2 (13:12→18:00)
[2016-10-11 20:00] VITALS: BP 134/70
[2016-10-11 20:53] LABS: CLARITY URINE CLOUDY (CLEAR); COLOR URINE DARK YELLOW (YELLOW); GLUCOSE URINE 1+ (NEGATIVE); KETONES URINE TRACE (NEGATIVE); LEUKOCYTE ESTERASE URINE TRACE (NEGATIVE); NITRITE URINE NEGATIVE (NEGATIVE); OCCULT BLOOD URINE 1+ (NEGATIVE); PROTEIN URINE 2+ (NEGATIVE); SPECIFIC GRAVITY URINE 1.024 (1.005-1.030)
[2016-10-11 21:40] LABS: BACTERIA URINE 2+; SQUAMOUS EPITHELIAL CELL URINE FEW /lpf (RARE/1+)
[2016-10-11] MEDS: IRON SUCROSE COMPLEX 100 MG in SODIUM CHLORIDE 0.9% 100 ML IV SCH (22:04)
[2016-10-11] MEDS: ATORVASTATIN CALCIUM 40MG TABLET PO SCH (22:05)
[2016-10-11] MEDS: EPOETIN ALFA 10000UNITS/ML VIAL SUBCUT SCH (22:05)
[2016-10-11] MEDS ORDERED: ACETAMINOPHEN 325MG TABLET PO PRN (23:00)
[2016-10-12] MEDS: PIPERACILLIN/TAZ 2.25G PREMIX 50 ML IV SCH ×3 (01:34→17:34)
[2016-10-12] MEDS: IPRATROPIUM/ALBUTEROL 0.5-3(2.5)MG/3ML NEB HHN SCH ×4 (02:08→20:06)
[2016-10-12 05:57] LABS: BASOPHILS % 0.6 % (0.0-2.0); DIFFERENTIAL COMMENT 0; EOSINOPHILS % 1.6 % (0.0-5.0); HEMATOCRIT. 27.6 % (42.0-52.0); HEMOGLOBIN. 8.4 g/dL (14.0-18.0); LYMPHOCYTES % 8.5 % (20.0-50.0); MEAN CORPUSCULAR HEMOGLOBIN 22.3 pg (28.0-32.0); MEAN CORPUSCULAR HGB CONC 30.6 g/dL (31.0-37.0); MEAN CORPUSCULAR VOLUME 73.1 fL (80.0-94.0); MEAN PLATELET VOLUME 7.2 fl (7.4-10.4); MONOCYTES % 9.5 % (2.0-8.0); NEUTROPHILS % 79.8 % (40.0-76.0); PLATELET 393 x1000/uL (130-400); RED BLOOD CELL COUNT 3.78 mill/uL (4.7-6.1); RED CELL DISTRIBUTION WIDTH 21.3 % (11.6-14.6); WHITE BLOOD COUNT 15.4 x1000/uL (4.5-11.0)
[2016-10-12] MEDS: GABAPENTIN 100MG CAPSULE PO SCH ×3 (06:20→22:26)
[2016-10-12] MEDS: FAMOTIDINE 20MG TABLET PO SCH (06:20)
[2016-10-12] MEDS: LIDOCAINE HCL 4% CREAM 76GM TUBE TP SCH ×2 (06:20→17:51)
[2016-10-12] MEDS: BLOOD SUGAR DIAGNOSTIC STRIP TEST SCH ×4 (06:21→21:00)
[2016-10-12] MEDS: INSULIN LISPRO 100 UNITS/ML SUBCUT SCH ×6 (06:26→22:47)
[2016-10-12 08:00] VITALS: BP 130/49
[2016-10-12] MEDS: ASPIRIN 81MG TABLET PO SCH (08:18)
[2016-10-12] MEDS: FUROSEMIDE 40MG TABLET PO SCH (08:18)
[2016-10-12] MEDS: LACTOBACILLUS GG CAPSULE PO SCH (08:18)
[2016-10-12] MEDS: ALLOPURINOL 100 MG TABLET PO SCH (08:18)
[2016-10-12] MEDS: FERROUS SULFATE 325MG TABLET PO SCH ×3 (08:18→17:34)
[2016-10-12] MEDS: ALBUTEROL 2MG TABLET PO SCH (08:18)
[2016-10-12] MEDS: FOLIC ACID/VITAMIN B COMP W-C TABLET PO SCH (08:18)
[2016-10-12] MEDS: TAMSULOSIN HCL 0.4MG SR CAPSULE PO SCH (08:18)
[2016-10-12] MEDS: ENOXAPARIN 30MG/0.3ML SYR SUBCUT SCH (08:19)
[2016-10-12] MEDS: HYDROCODONE/ACETAMINOPHEN 5/325MG TABLET PO SCH (08:20)
[2016-10-12 09:45] VITALS: BP 150/73
[2016-10-12] MEDS: METOPROLOL TARTRATE 25MG TABLET PO SCH ×2 (09:50→22:27)
[2016-10-12] MEDS: LISINOPRIL 40MG TABLET PO SCH (09:51)
[2016-10-12] MEDS: AMLODIPINE 10MG TABLET PO SCH (09:51)
[2016-10-12] MEDS: INSULIN DETEMIR UD 100 UNITS/ML SYR SUBCUT SCH ×2 (09:56→22:48)
[2016-10-12] MEDS: SILVER SULFADIAZINE 1% CREAM 50GM TOP SCH (11:27)
[2016-10-12 11:31] LABS: BG BASE EXCESS -5.1 mmol/L (-2.0-2.0); BG CARBOXYHEMOGLOBIN 0.5 % (0.5-1.5); BG DEOXYHEMOGLOBIN 4.2 % (0.0-5.0); BG FRACTION INSPIRED OXYGEN 32; BG METHEMOGLOBIN 0.2 % (0.0-1.5); BG OXYGEN SATURATION 95.8 % (92.0-98.5); BG OXYHEMOGLOBIN 95.1 % (94.0-97.0); BG PH 7.351 (7.350-7.450); BG PO2 86.5 mmHg (75.0-100.0); BG SAMPLE SITE RIGHT BRACHIAL; BG TOTAL HEMOGLOBIN 9.2 g/dL (12.0-18.0); BG VENT MODE NASAL CANNULA
[2016-10-12] MEDS: GUAIFENESIN 600MG ER TABLET PO SCH ×2 (11:41→22:28)
[2016-10-12] MEDS ORDERED: VANCOMYCIN 2,000 MG in DEXT 5% WATER 500 ML IV SCH (12:00)
[2016-10-12] MEDS: BUDESONIDE 0.5MG/2ML NEB HHN SCH (13:45)
[2016-10-12 20:00] VITALS: BP 146/99
[2016-10-12] MEDS: IRON SUCROSE COMPLEX 100 MG in SODIUM CHLORIDE 0.9% 100 ML IV SCH (22:26)
[2016-10-12] MEDS: ATORVASTATIN CALCIUM 40MG TABLET PO SCH (22:27)
[2016-10-13] MEDS: PIPERACILLIN/TAZ 2.25G PREMIX 50 ML IV SCH (02:05)
[2016-10-13] MEDS: IPRATROPIUM/ALBUTEROL 0.5-3(2.5)MG/3ML NEB HHN SCH ×2 (02:18→07:13)
[2016-10-13] MEDS: BUDESONIDE 0.5MG/2ML NEB HHN SCH ×2 (02:40→07:13)
[2016-10-13 02:45] VITALS: BP 140/74
[2016-10-13 03:30] VITALS: BP 139/68
[2016-10-13 03:38] LABS: BG BASE EXCESS -4.2 mmol/L (-2.0-2.0); BG CARBOXYHEMOGLOBIN 0.5 % (0.5-1.5); BG FRACTION INSPIRED OXYGEN 36; BG HCO3 ACT 20.9 mmol/L (22.0-26.0); BG METHEMOGLOBIN 0.1 % (0.0-1.5); BG OXYGEN SATURATION 69.8 % (92.0-98.5); BG OXYHEMOGLOBIN 69.4 % (94.0-97.0); BG PH 7.358 (7.350-7.450); BG PO2 38.5 mmHg (75.0-100.0); BG SAMPLE SITE RIGHT RADIAL; BG TIDAL VOLUME(mL) 766 mL; BG TOTAL HEMOGLOBIN 9.4 g/dL (12.0-18.0); BG VENT MODE MASK - CPAP
[2016-10-13 04:51] LABS: BG BASE EXCESS -3.7 mmol/L (-2.0-2.0); BG CARBOXYHEMOGLOBIN 0.5 % (0.5-1.5); BG DEOXYHEMOGLOBIN 7.3 % (0.0-5.0); BG FRACTION INSPIRED OXYGEN 36; BG HCO3 ACT 22.5 mmol/L (22.0-26.0); BG METHEMOGLOBIN 0.6 % (0.0-1.5); BG OXYGEN SATURATION 92.6 % (92.0-98.5); BG OXYHEMOGLOBIN 91.6 % (94.0-97.0); BG PCO2 46.1 mmHg (35.0-45.0); BG PH 7.307 (7.350-7.450); BG PO2 72.8 mmHg (75.0-100.0); BG SAMPLE SITE RIGHT RADIAL; BG TIDAL VOLUME(mL) 546 mL; BG TOTAL HEMOGLOBIN 9.3 g/dL (12.0-18.0); BG VENT MODE MASK - CPAP
[2016-10-13] MEDS: BLOOD SUGAR DIAGNOSTIC STRIP TEST SCH (05:32)
[2016-10-13] MEDS: GABAPENTIN 100MG CAPSULE PO SCH (05:59)
[2016-10-13] MEDS: FAMOTIDINE 20MG TABLET PO SCH (06:00)
[2016-10-13] MEDS: LIDOCAINE HCL 4% CREAM 76GM TUBE TP SCH (06:00)
[2016-10-13 06:57] LABS: HEMATOCRIT. 25.1 % (42.0-52.0); HEMOGLOBIN. 7.8 g/dL (14.0-18.0); MEAN CORPUSCULAR HEMOGLOBIN 22.6 pg (28.0-32.0); MEAN CORPUSCULAR HGB CONC 31.1 g/dL (31.0-37.0); MEAN CORPUSCULAR VOLUME 72.5 fL (80.0-94.0); MEAN PLATELET VOLUME 7.3 fl (7.4-10.4); PLATELET 367 x1000/uL (130-400); RED BLOOD CELL COUNT 3.46 mill/uL (4.7-6.1); RED CELL DISTRIBUTION WIDTH 20.8 % (11.6-14.6); WHITE BLOOD COUNT 20.9 x1000/uL (4.5-11.0)
[2016-10-13] MEDS: INSULIN LISPRO 100 UNITS/ML SUBCUT SCH ×2 (07:00→08:01)
[2016-10-13 07:06] LABS: DIFFERENTIAL COMMENT 1
[2016-10-13 07:18] LABS: CALCIUM 8.5 mg/dL (8.5-10.1)
[2016-10-13 08:00] VITALS: BP 115/56
[2016-10-13 08:24] LABS: BG BASE EXCESS -3.8 mmol/L (-2.0-2.0); BG CARBOXYHEMOGLOBIN 0.5 % (0.5-1.5); BG DEOXYHEMOGLOBIN 9.5 % (0.0-5.0); BG FRACTION INSPIRED OXYGEN 28; BG METHEMOGLOBIN 0.2 % (0.0-1.5); BG OXYGEN SATURATION 90.4 % (92.0-98.5); BG OXYHEMOGLOBIN 89.8 % (94.0-97.0); BG PCO2 42.6 mmHg (35.0-45.0); BG PO2 64.9 mmHg (75.0-100.0); BG SAMPLE SITE RIGHT RADIAL; BG TOTAL HEMOGLOBIN 9.4 g/dL (12.0-18.0); BG VENT MODE NASAL CANNULA
[2016-10-13] MEDS: FERROUS SULFATE 325MG TABLET PO SCH (09:00)
[2016-10-13] MEDS: METOPROLOL TARTRATE 25MG TABLET PO SCH (09:00)
[2016-10-13] MEDS: LACTOBACILLUS GG CAPSULE PO SCH (09:00)
[2016-10-13] MEDS: ASPIRIN 81MG TABLET PO SCH (09:00)
[2016-10-13] MEDS: ALLOPURINOL 100 MG TABLET PO SCH (09:00)
[2016-10-13] MEDS: AMLODIPINE 10MG TABLET PO SCH (09:00)
[2016-10-13] MEDS: FOLIC ACID/VITAMIN B COMP W-C TABLET PO SCH (09:00)
[2016-10-13] MEDS: LISINOPRIL 40MG TABLET PO SCH (09:00)
[2016-10-13] MEDS: FUROSEMIDE 40MG TABLET PO SCH (09:00)
[2016-10-13] MEDS: TAMSULOSIN HCL 0.4MG SR CAPSULE PO SCH (09:00)
[2016-10-13] MEDS: GUAIFENESIN 600MG ER TABLET PO SCH (09:00)
[2016-10-13] MEDS ORDERED: FUROSEMIDE 40MG/4ML VIAL IVP NR (09:15)
[2016-10-13] MEDS: ENOXAPARIN 30MG/0.3ML SYR SUBCUT SCH (09:59)
[2016-10-13 14:03] LABS: ANISOCYTOSIS 1+; HYPOCHROMASIA 1+; PLATELET ESTIMATE NORMAL
== END 2016-10-13 10:53 | DRG 853 ==
PROVIDERS: ADMIT Physical Medicine & Rehabilitation Spinal Cord Injury Medicine; ATTEND Internal Medicine Geriatric Medicine
PROC: 5A1D60Z (ICD-10-PCS; 2016-10-02)
PROC: 0JBQ0ZZ Excision of Right Foot Subcutaneous Tissue and Fascia, Open Approach (ICD-10-PCS; principal; 2016-10-04)
PROC: 0JBR0ZZ Excision of Left Foot Subcutaneous Tissue and Fascia, Open Approach (ICD-10-PCS; 2016-10-04)
PROC: 5A09357 Assistance with Respiratory Ventilation, Less than 24 Consecutive Hours, Continuous Positive Airway Pressure (ICD-10-PCS; 2016-10-12)
DX: A41.9 Sepsis, unspecified organism (principal); G92 Toxic encephalopathy; N18.6 End stage renal disease; J18.9 Pneumonia, unspecified organism; J96.00 Acute respiratory failure, unspecified whether with hypoxia or hypercapnia; L97.909 Non-pressure chronic ulcer of unspecified part of unspecified lower leg with unspecified severity; E44.1 Mild protein-calorie malnutrition; I50.32 Chronic diastolic (congestive) heart failure; I13.2 Hypertensive heart and chronic kidney disease with heart failure and with stage 5 chronic kidney disease, or end stage renal disease; L03.116 Cellulitis of left lower limb; J98.11 Atelectasis; J44.0 Chronic obstructive pulmonary disease with (acute) lower respiratory infection; J44.1 Chronic obstructive pulmonary disease with (acute) exacerbation; E11.22 Type 2 diabetes mellitus with diabetic chronic kidney disease; Z68.34 Body mass index [BMI] 34.0-34.9, adult; Z99.2 Dependence on renal dialysis; G47.33 Obstructive sleep apnea (adult) (pediatric); I73.9 Peripheral vascular disease, unspecified; E11.42 Type 2 diabetes mellitus with diabetic polyneuropathy; M19.90 Unspecified osteoarthritis, unspecified site; E11.65 Type 2 diabetes mellitus with hyperglycemia; I89.0 Lymphedema, not elsewhere classified; E11.621 Type 2 diabetes mellitus with foot ulcer; E66.01 Morbid (severe) obesity due to excess calories; R26.9 Unspecified abnormalities of gait and mobility; D50.9 Iron deficiency anemia, unspecified; L97.529 Non-pressure chronic ulcer of other part of left foot with unspecified severity; L97.519 Non-pressure chronic ulcer of other part of right foot with unspecified severity; H10.9 Unspecified conjunctivitis; F39 Unspecified mood [affective] disorder; K21.9 Gastro-esophageal reflux disease without esophagitis; E78.5 Hyperlipidemia, unspecified; G89.29 Other chronic pain; E11.622 Type 2 diabetes mellitus with other skin ulcer; Z86.718 Personal history of other venous thrombosis and embolism; Z87.891 Personal history of nicotine dependence; Z82.49 Family history of ischemic heart disease and other diseases of the circulatory system; Z83.3 Family history of diabetes mellitus
CPT/HCPCS: 36415; 36600; 71010; 73721; 80048; 80053; 80061; 81001; 82306; 82375; 82607; 82728; 82746; 82805; 82962; 83036; 83540; 83550; 83735; 84100; 84134; 84153; 84443; 84630; 85025; 87015; 87045; 87070; 87077; 87086; 87205; 87427; 87449; 87493; 93970; 94640; 94660; 94664; 97110; 97116; 97150; 97162; 97167; 97530; 97535; C1893; J0885; J1650; J1815; J1940; J1956; J2501; J2543; J3370; J7030; J7050; J7060; J7611; J7620; J7626

== ENCOUNTER 2016-10-13 11:12 | Inpatient (IN) | payer MEDICARE, BC ==
[~2016-10-13] VITALS: Ht 182.9 cm; Wt 115.2 kg
[2016-10-13] VITALS (7 sets, daily range): BP systolic 131–161; BP diastolic 63–71
[2016-10-13 12:55] LABS: BG BASE EXCESS -3.2 mmol/L (-2.0-2.0); BG CARBOXYHEMOGLOBIN 0.1 % (0.5-1.5); BG DEOXYHEMOGLOBIN 4.3 % (0.0-5.0); BG FRACTION INSPIRED OXYGEN 36; BG HCO3 ACT 22.7 mmol/L (22.0-26.0); BG METHEMOGLOBIN 0.7 % (0.0-1.5); BG OXYGEN SATURATION 95.7 % (92.0-98.5); BG OXYHEMOGLOBIN 94.9 % (94.0-97.0); BG PCO2 44.7 mmHg (35.0-45.0); BG PH 7.323 (7.350-7.450); BG PO2 87.3 mmHg (75.0-100.0); BG SAMPLE SITE RIGHT RADIAL; BG TOTAL HEMOGLOBIN 8.7 g/dL (12.0-18.0); BG VENT MODE MASK - CPAP
[2016-10-13] MEDS ORDERED: ALBUTEROL 6.7GM HFA INHALER ORI PRN (13:00)
[2016-10-13] MEDS ORDERED: ACETAMINOPHEN 325MG TABLET PO PRN (13:00)
[2016-10-13] MEDS ORDERED: BUDESONIDE 0.5MG/2ML NEB HHN SCH ×2 (13:00→18:00)
[2016-10-13] MEDS ORDERED: DEXTROSE 50% WATER 50ML SYRINGE IV PRN ×3 (13:00)
[2016-10-13] MEDS: IPRATROPIUM/ALBUTEROL 0.5-3(2.5)MG/3ML NEB HHN SCH ×2 (13:46→20:51)
[2016-10-13] MEDS: GABAPENTIN 100MG CAPSULE PO SCH ×2 (14:52→23:30)
[2016-10-13] MEDS: INSULIN LISPRO 100 UNITS/ML SUBCUT SCH ×4 (14:53→21:00)
[2016-10-13] MEDS: PIPERACILLIN/TAZ 2.25G PREMIX 50 ML IV SCH ×2 (15:03→23:34)
[2016-10-13] MEDS ORDERED: BLOOD SUGAR DIAGNOSTIC STRIP TEST SCH ×2 (17:20)
[2016-10-13] MEDS: BLOOD SUGAR DIAGNOSTIC STRIP TEST SCH ×2 (18:17→21:00)
[2016-10-13] MEDS: ATORVASTATIN CALCIUM 40MG TABLET PO SCH (23:27)
[2016-10-13] MEDS: METOPROLOL TARTRATE 25MG TABLET PO SCH (23:28)
[2016-10-13] MEDS: GUAIFENESIN 600MG ER TABLET PO SCH (23:29)
[2016-10-14] VITALS: BP 165/76
[2016-10-14] MEDS: IPRATROPIUM/ALBUTEROL 0.5-3(2.5)MG/3ML NEB HHN SCH ×4 (00:47→20:42)
[2016-10-14] MEDS: BUDESONIDE 0.5MG/2ML NEB HHN SCH ×3 (00:47→20:43)
[2016-10-14 04:00] VITALS: BP 144/84
[2016-10-14] MEDS: GABAPENTIN 100MG CAPSULE PO SCH ×3 (06:54→21:13)
[2016-10-14] MEDS: BLOOD SUGAR DIAGNOSTIC STRIP TEST SCH ×4 (07:00→21:28)
[2016-10-14] MEDS: FAMOTIDINE 20MG TABLET PO SCH (07:00)
[2016-10-14 07:52] VITALS: BP 156/68
[2016-10-14] MEDS: INSULIN LISPRO 100 UNITS/ML SUBCUT SCH ×7 (08:10→21:00)
[2016-10-14] MEDS: PIPERACILLIN/TAZ 2.25G PREMIX 50 ML IV SCH ×2 (08:13→16:01)
[2016-10-14 08:20] LABS: HEMOGLOBIN. 8.4 g/dL (14.0-18.0); MEAN CORPUSCULAR HEMOGLOBIN 22.7 pg (28.0-32.0); MEAN CORPUSCULAR HGB CONC 31.1 g/dL (31.0-37.0); MEAN CORPUSCULAR VOLUME 73.1 fL (80.0-94.0); MEAN PLATELET VOLUME 7.5 fl (7.4-10.4); PLATELET 328 x1000/uL (130-400); RED BLOOD CELL COUNT 3.69 mill/uL (4.7-6.1); WHITE BLOOD COUNT 15.3 x1000/uL (4.5-11.0)
[2016-10-14 08:23] LABS: DIFFERENTIAL COMMENT 1
[2016-10-14] MEDS: ALLOPURINOL 100 MG TABLET PO SCH (08:38)
[2016-10-14] MEDS: FOLIC ACID/VITAMIN B COMP W-C TABLET PO SCH (08:38)
[2016-10-14] MEDS: TAMSULOSIN HCL 0.4MG SR CAPSULE PO SCH (08:39)
[2016-10-14] MEDS: ASPIRIN 81MG TABLET PO SCH (08:40)
[2016-10-14] MEDS: AMLODIPINE 10MG TABLET PO SCH (08:40)
[2016-10-14] MEDS: LISINOPRIL 40MG TABLET PO SCH (08:42)
[2016-10-14] MEDS: LOSARTAN POTASSIUM 50 MG TABLET PO SCH (08:43)
[2016-10-14] MEDS: METOPROLOL TARTRATE 25MG TABLET PO SCH ×2 (08:43→21:13)
[2016-10-14] MEDS: GUAIFENESIN 600MG ER TABLET PO SCH ×2 (08:47→21:12)
[2016-10-14] MEDS: ALBUTEROL 2MG TABLET PO SCH (08:47)
[2016-10-14] MEDS: ENOXAPARIN 30MG/0.3ML SYR SUBCUT SCH (08:49)
[2016-10-14] MEDS: SILVER SULFADIAZINE 1% CREAM 50GM TOP SCH (08:50)
[2016-10-14 08:57] LABS: CALCIUM 8.8 mg/dL (8.5-10.1)
[2016-10-14] MEDS ORDERED: INSULIN DETEMIR UD 100 UNITS/ML SYR SUBCUT SCH (09:00)
[2016-10-14] MEDS: INSULIN DETEMIR UD 100 UNITS/ML SYR SUBCUT SCH (10:00)
[2016-10-14 12:15] VITALS: BP 130/64
[2016-10-14 16:00] VITALS: BP 132/66
[2016-10-14] MEDS: HYDROCODONE/ACETAMINOPHEN 5/325MG TABLET PO PRN (18:53)
[2016-10-14 20:00] VITALS: BP 123/67
[2016-10-14] MEDS: ATORVASTATIN CALCIUM 40MG TABLET PO SCH (21:12)
[2016-10-14] MEDS: PARICALCITOL 5 MCG/ML 1ML IV SCH (21:12)
[2016-10-15] VITALS: BP 131/68
[2016-10-15] MEDS: PIPERACILLIN/TAZ 2.25G PREMIX 50 ML IV SCH ×4 (00:24→23:47)
[2016-10-15] MEDS: IPRATROPIUM/ALBUTEROL 0.5-3(2.5)MG/3ML NEB HHN SCH ×4 (02:10→20:50)
[2016-10-15 04:00] VITALS: BP 125/65
[2016-10-15 05:04] LABS: CALCIUM 8.2 mg/dL (8.5-10.1)
[2016-10-15 06:15] LABS: EOSINOPHILS % 3.2 % (0.0-5.0); HEMATOCRIT. 27.5 % (42.0-52.0); HEMOGLOBIN. 8.1 g/dL (14.0-18.0); LYMPHOCYTES % 9.4 % (20.0-50.0); MEAN CORPUSCULAR HEMOGLOBIN 22.8 pg (28.0-32.0); MEAN CORPUSCULAR HGB CONC 29.5 g/dL (31.0-37.0); MEAN CORPUSCULAR VOLUME 77.1 fL (80.0-94.0); MONOCYTES % 8.1 % (2.0-8.0); NEUTROPHILS % 78.3 % (40.0-76.0); PLATELET 266 x1000/uL (130-400); RED BLOOD CELL COUNT 3.57 mill/uL (4.7-6.1); RED CELL DISTRIBUTION WIDTH 22.4 % (11.6-14.6); WHITE BLOOD COUNT 11.4 x1000/uL (4.5-11.0)
[2016-10-15] MEDS: GABAPENTIN 100MG CAPSULE PO SCH ×3 (06:23→21:39)
[2016-10-15] MEDS: FAMOTIDINE 20MG TABLET PO SCH (06:23)
[2016-10-15] MEDS: HYDROCODONE/ACETAMINOPHEN 5/325MG TABLET PO PRN ×2 (06:26→23:54)
[2016-10-15] MEDS: BLOOD SUGAR DIAGNOSTIC STRIP TEST SCH ×4 (06:28→20:53)
[2016-10-15 06:29] LABS: DIFFERENTIAL COMMENT 1
[2016-10-15] MEDS: INSULIN LISPRO 100 UNITS/ML SUBCUT SCH ×7 (06:29→21:41)
[2016-10-15 08:00] VITALS: BP 145/67
[2016-10-15] MEDS: METOPROLOL TARTRATE 25MG TABLET PO SCH ×2 (09:00→21:40)
[2016-10-15] MEDS: LISINOPRIL 40MG TABLET PO SCH (09:00)
[2016-10-15] MEDS: AMLODIPINE 10MG TABLET PO SCH (09:00)
[2016-10-15] MEDS: LOSARTAN POTASSIUM 50 MG TABLET PO SCH (09:00)
[2016-10-15] MEDS: ENOXAPARIN 30MG/0.3ML SYR SUBCUT SCH (09:09)
[2016-10-15] MEDS: ALBUTEROL 2MG TABLET PO SCH (09:09)
[2016-10-15] MEDS: ASPIRIN 81MG TABLET PO SCH (09:10)
[2016-10-15] MEDS: ALLOPURINOL 100 MG TABLET PO SCH (09:10)
[2016-10-15] MEDS: GUAIFENESIN 600MG ER TABLET PO SCH ×2 (09:10→21:40)
[2016-10-15] MEDS: TAMSULOSIN HCL 0.4MG SR CAPSULE PO SCH (09:10)
[2016-10-15] MEDS: FOLIC ACID/VITAMIN B COMP W-C TABLET PO SCH (09:10)
[2016-10-15] MEDS: SILVER SULFADIAZINE 1% CREAM 50GM TOP SCH (09:11)
[2016-10-15] MEDS: BUDESONIDE 0.5MG/2ML NEB HHN SCH (09:39)
[2016-10-15] MEDS: INSULIN DETEMIR UD 100 UNITS/ML SYR SUBCUT SCH (10:11)
[2016-10-15 10:37] LABS: ANISOCYTOSIS 1+; HYPOCHROMASIA 1+; PLATELET ESTIMATE NORMAL
[2016-10-15 12:00] VITALS: BP 143/64
[2016-10-15 16:00] VITALS: BP 128/68
[2016-10-15] MEDS ORDERED: VANCOMYCIN 1 G PREMIX 200 ML IV SCH (17:00)
[2016-10-15 20:00] VITALS: BP 147/66
[2016-10-15] MEDS: ATORVASTATIN CALCIUM 40MG TABLET PO SCH (21:39)
[2016-10-16] VITALS (15 sets, daily range): BP systolic 115–187; BP diastolic 61–90
[2016-10-16] MEDS: IPRATROPIUM/ALBUTEROL 0.5-3(2.5)MG/3ML NEB HHN SCH ×4 (00:19→21:03)
[2016-10-16] MEDS: BUDESONIDE 0.5MG/2ML NEB HHN SCH ×3 (00:19→21:03)
[2016-10-16] MEDS: GABAPENTIN 100MG CAPSULE PO SCH ×3 (05:22→21:00)
[2016-10-16] MEDS: BLOOD SUGAR DIAGNOSTIC STRIP TEST SCH ×4 (06:20→20:46)
[2016-10-16] MEDS: FAMOTIDINE 20MG TABLET PO SCH ×2 (06:21→08:59)
[2016-10-16 07:41] LABS: BASOPHILS % 1.1 % (0.0-2.0); EOSINOPHILS % 4.2 % (0.0-5.0); HEMATOCRIT. 25.4 % (42.0-52.0); HEMOGLOBIN. 7.9 g/dL (14.0-18.0); MEAN CORPUSCULAR HEMOGLOBIN 23.2 pg (28.0-32.0); MEAN CORPUSCULAR HGB CONC 31.1 g/dL (31.0-37.0); MEAN CORPUSCULAR VOLUME 74.4 fL (80.0-94.0); MEAN PLATELET VOLUME 7.7 fl (7.4-10.4); MONOCYTES % 9.1 % (2.0-8.0); NEUTROPHILS % 75.6 % (40.0-76.0); PLATELET 311 x1000/uL (130-400); RED BLOOD CELL COUNT 3.41 mill/uL (4.7-6.1); RED CELL DISTRIBUTION WIDTH 22.1 % (11.6-14.6); WHITE BLOOD COUNT 9.9 x1000/uL (4.5-11.0)
[2016-10-16 08:19] LABS: DIFFERENTIAL COMMENT 1
[2016-10-16 08:40] LABS: CALCIUM 8.1 mg/dL (8.5-10.1)
[2016-10-16] MEDS: AMLODIPINE 10MG TABLET PO SCH (08:58)
[2016-10-16] MEDS: FOLIC ACID/VITAMIN B COMP W-C TABLET PO SCH (08:58)
[2016-10-16] MEDS: LISINOPRIL 40MG TABLET PO SCH (08:58)
[2016-10-16] MEDS: GUAIFENESIN 600MG ER TABLET PO SCH ×2 (08:58→20:50)
[2016-10-16] MEDS: ALBUTEROL 2MG TABLET PO SCH (08:59)
[2016-10-16] MEDS: LOSARTAN POTASSIUM 50 MG TABLET PO SCH (08:59)
[2016-10-16] MEDS: ASPIRIN 81MG TABLET PO SCH (08:59)
[2016-10-16] MEDS: TAMSULOSIN HCL 0.4MG SR CAPSULE PO SCH (08:59)
[2016-10-16] MEDS: SILVER SULFADIAZINE 1% CREAM 50GM TOP SCH (09:00)
[2016-10-16] MEDS: PIPERACILLIN/TAZ 2.25G PREMIX 50 ML IV SCH ×3 (09:08→23:47)
[2016-10-16] MEDS: INSULIN LISPRO 100 UNITS/ML SUBCUT SCH ×7 (09:16→20:46)
[2016-10-16] MEDS: METOPROLOL TARTRATE 25MG TABLET PO SCH ×2 (10:52→20:30)
[2016-10-16] MEDS: ALLOPURINOL 100 MG TABLET PO SCH (10:52)
[2016-10-16] MEDS: INSULIN DETEMIR UD 100 UNITS/ML SYR SUBCUT SCH (11:00)
[2016-10-16 12:35] LABS: HEMOGLOBIN 7.8 g/dL (14.0-18.0)
[2016-10-16] MEDS: HYDROCODONE/ACETAMINOPHEN 5/325MG TABLET PO PRN (13:17)
[2016-10-16 16:23] LABS: INDEX HEMOLYSI 1 (1-3); INDEX ICTERIC 1 (1-4); INDEX LIPEMIC 1 (1-3); IRON 35 ug/dL (50-175); TOTAL IRON BINDING CAPACITY 127 ug/dL (250-450)
[2016-10-16] MEDS: PANTOPRAZOLE SODIUM 40 MG/VIAL IV SCH (17:01)
[2016-10-16] MEDS: ATORVASTATIN CALCIUM 40MG TABLET PO SCH (20:50)
[2016-10-16] MEDS: PARICALCITOL 5 MCG/ML 1ML IV SCH (22:52)
[2016-10-17 00:01] VITALS: BP 146/65
[2016-10-17] MEDS: HYDROCODONE/ACETAMINOPHEN 5/325MG TABLET PO PRN ×2 (00:48→16:20)
[2016-10-17 02:02] LABS: HEMATOCRIT 31.6 % (42.0-52.0); HEMOGLOBIN 10.1 g/dL (14.0-18.0)
[2016-10-17] MEDS: IPRATROPIUM/ALBUTEROL 0.5-3(2.5)MG/3ML NEB HHN SCH ×2 (02:12→08:05)
[2016-10-17 04:43] VITALS: BP 121/66
[2016-10-17] MEDS: GABAPENTIN 100MG CAPSULE PO SCH ×3 (05:43→21:08)
[2016-10-17 06:34] LABS: CALCIUM 8.4 mg/dL (8.5-10.1)
[2016-10-17] MEDS: BLOOD SUGAR DIAGNOSTIC STRIP TEST SCH ×4 (06:53→21:09)
[2016-10-17 06:59] LABS: BASOPHILS % 0.8 % (0.0-2.0); DIFFERENTIAL COMMENT 0; EOSINOPHILS % 3.7 % (0.0-5.0); HEMATOCRIT. 29.1 % (42.0-52.0); HEMOGLOBIN. 9.2 g/dL (14.0-18.0); MEAN CORPUSCULAR HEMOGLOBIN 24.2 pg (28.0-32.0); MEAN CORPUSCULAR HGB CONC 31.7 g/dL (31.0-37.0); MEAN CORPUSCULAR VOLUME 76.4 fL (80.0-94.0); MEAN PLATELET VOLUME 7.9 fl (7.4-10.4); MONOCYTES % 7.7 % (2.0-8.0); NEUTROPHILS % 77.8 % (40.0-76.0); PLATELET 316 x1000/uL (130-400); RED BLOOD CELL COUNT 3.81 mill/uL (4.7-6.1); RED CELL DISTRIBUTION WIDTH 21.1 % (11.6-14.6); WHITE BLOOD COUNT 10.9 x1000/uL (4.5-11.0)
[2016-10-17] MEDS: INSULIN LISPRO 100 UNITS/ML SUBCUT SCH ×7 (07:50→20:43)
[2016-10-17 08:00] VITALS: BP 143/70
[2016-10-17] MEDS: PIPERACILLIN/TAZ 2.25G PREMIX 50 ML IV SCH (08:00)
[2016-10-17] MEDS: ALBUTEROL 2MG TABLET PO SCH (09:00)
[2016-10-17] MEDS: FOLIC ACID/VITAMIN B COMP W-C TABLET PO SCH (09:00)
[2016-10-17] MEDS: LISINOPRIL 40MG TABLET PO SCH ×2 (09:00→17:26)
[2016-10-17] MEDS: GUAIFENESIN 600MG ER TABLET PO SCH (09:00)
[2016-10-17] MEDS: TAMSULOSIN HCL 0.4MG SR CAPSULE PO SCH (09:00)
[2016-10-17] MEDS: PANTOPRAZOLE SODIUM 40 MG/VIAL IV SCH (09:00)
[2016-10-17] MEDS: METOPROLOL TARTRATE 25MG TABLET PO SCH ×2 (09:00→21:08)
[2016-10-17] MEDS: ALLOPURINOL 100 MG TABLET PO SCH (09:00)
[2016-10-17] MEDS: AMLODIPINE 10MG TABLET PO SCH ×2 (09:00→17:26)
[2016-10-17] MEDS: ASPIRIN 81MG TABLET PO SCH (09:00)
[2016-10-17] MEDS: LOSARTAN POTASSIUM 50 MG TABLET PO SCH (09:00)
[2016-10-17] MEDS: INSULIN DETEMIR UD 100 UNITS/ML SYR SUBCUT SCH (10:00)
[2016-10-17 12:04] VITALS: BP 161/83
[2016-10-17] MEDS: SILVER SULFADIAZINE 1% CREAM 50GM TOP SCH (12:30)
[2016-10-17] MEDS ORDERED: LACTULOSE 20G/30ML UDC PO ONE (14:00)
[2016-10-17 15:43] VITALS: BP 166/77
[2016-10-17] MEDS ORDERED: DOCUSATE SODIUM 100MG CAPSULE PO SCH (17:00)
[2016-10-17] MEDS: DOCUSATE SODIUM 100MG CAPSULE PO SCH (17:25)
[2016-10-17 20:00] VITALS: BP 165/67
[2016-10-17] MEDS ORDERED: POLYETHYLENE GLYCOL 3350 (17GM) 1 DOSE PACK PO SCH ×2 (21:00)
[2016-10-17] MEDS: ATORVASTATIN CALCIUM 40MG TABLET PO SCH (21:08)
[2016-10-18] VITALS: BP 160/60
[2016-10-18 04:00] VITALS: BP 150/70
[2016-10-18] MEDS: BLOOD SUGAR DIAGNOSTIC STRIP TEST SCH ×2 (06:21→12:20)
[2016-10-18] MEDS: GABAPENTIN 100MG CAPSULE PO SCH ×2 (06:31→13:52)
[2016-10-18] MEDS: FAMOTIDINE 20MG TABLET PO SCH (06:31)
[2016-10-18] MEDS: INSULIN LISPRO 100 UNITS/ML SUBCUT SCH ×2 (07:50→10:27)
[2016-10-18] MEDS: METOPROLOL TARTRATE 25MG TABLET PO SCH (09:00)
[2016-10-18 09:56] VITALS: BP 149/69
[2016-10-18] MEDS: ACETYLCYSTEINE 100MG/ML 10% VIAL 4ML INH SCH ×2 (09:58→14:18)
[2016-10-18] MEDS: IPRATROPIUM/ALBUTEROL 0.5-3(2.5)MG/3ML NEB HHN PRN ×2 (09:58→14:17)
[2016-10-18] MEDS: TAMSULOSIN HCL 0.4MG SR CAPSULE PO SCH (10:21)
[2016-10-18] MEDS: LOSARTAN POTASSIUM 50 MG TABLET PO SCH (10:21)
[2016-10-18] MEDS: DOCUSATE SODIUM 100MG CAPSULE PO SCH (10:21)
[2016-10-18] MEDS: LISINOPRIL 40MG TABLET PO SCH (10:21)
[2016-10-18] MEDS: FOLIC ACID/VITAMIN B COMP W-C TABLET PO SCH (10:21)
[2016-10-18] MEDS: AMLODIPINE 10MG TABLET PO SCH (10:22)
[2016-10-18] MEDS: ASPIRIN 81MG TABLET PO SCH (10:22)
[2016-10-18] MEDS: ALLOPURINOL 100 MG TABLET PO SCH (10:22)
[2016-10-18] MEDS: ALBUTEROL 2MG TABLET PO SCH (10:22)
[2016-10-18] MEDS: INSULIN DETEMIR UD 100 UNITS/ML SYR SUBCUT SCH (10:26)
[2016-10-18] MEDS: PANTOPRAZOLE SODIUM 40 MG/VIAL IV SCH (10:35)
[2016-10-18 12:35] VITALS: BP 150/66
== END 2016-10-18 16:30 | disposition home health service (06) | DRG 871 ==
LOC: 6WST 11:12
PROVIDERS: ADMIT Internal Medicine Geriatric Medicine; ATTEND Internal Medicine Geriatric Medicine
PROC: 5A1D60Z (ICD-10-PCS; 2016-10-13)
PROC: 30233N1 Transfusion of Nonautologous Red Blood Cells into Peripheral Vein, Percutaneous Approach (ICD-10-PCS; principal; 2016-10-16)
PROC: 30233N1 Transfusion of Nonautologous Red Blood Cells into Peripheral Vein, Percutaneous Approach (ICD-10-PCS; 2016-10-16)
DX: A41.9 Sepsis, unspecified organism (principal); J18.9 Pneumonia, unspecified organism; N18.6 End stage renal disease; J96.20 Acute and chronic respiratory failure, unspecified whether with hypoxia or hypercapnia; G92 Toxic encephalopathy; I13.2 Hypertensive heart and chronic kidney disease with heart failure and with stage 5 chronic kidney disease, or end stage renal disease; J44.0 Chronic obstructive pulmonary disease with (acute) lower respiratory infection; E44.0 Moderate protein-calorie malnutrition; I50.30 Unspecified diastolic (congestive) heart failure; L03.116 Cellulitis of left lower limb; D64.9 Anemia, unspecified; D63.8 Anemia in other chronic diseases classified elsewhere; E66.01 Morbid (severe) obesity due to excess calories; Z68.34 Body mass index [BMI] 34.0-34.9, adult; D50.9 Iron deficiency anemia, unspecified; E11.22 Type 2 diabetes mellitus with diabetic chronic kidney disease; E11.42 Type 2 diabetes mellitus with diabetic polyneuropathy; R26.9 Unspecified abnormalities of gait and mobility; M54.9 Dorsalgia, unspecified; E11.621 Type 2 diabetes mellitus with foot ulcer; E11.65 Type 2 diabetes mellitus with hyperglycemia; E78.5 Hyperlipidemia, unspecified; J44.9 Chronic obstructive pulmonary disease, unspecified; G47.33 Obstructive sleep apnea (adult) (pediatric); G89.29 Other chronic pain; E11.51 Type 2 diabetes mellitus with diabetic peripheral angiopathy without gangrene; K21.9 Gastro-esophageal reflux disease without esophagitis; L97.519 Non-pressure chronic ulcer of other part of right foot with unspecified severity; L97.529 Non-pressure chronic ulcer of other part of left foot with unspecified severity; M10.9 Gout, unspecified; M19.90 Unspecified osteoarthritis, unspecified site; Z82.49 Family history of ischemic heart disease and other diseases of the circulatory system; Z83.3 Family history of diabetes mellitus; Z86.718 Personal history of other venous thrombosis and embolism; Z87.891 Personal history of nicotine dependence; Z99.2 Dependence on renal dialysis
CPT/HCPCS: 36415; 36600; 71010; 80048; 80202; 82270; 82375; 82728; 82805; 82962; 83540; 83550; 85014; 85018; 85025; 86850; 86900; 86920; 94640; 94660; 97116; 97161; 97166; 97530; 97535; C9113; J1650; J1815; J2501; J2543; J3370; J7030; J7040; J7608; J7620; J7626; P9016

== ENCOUNTER 2017-01-05 10:54 | Inpatient (IN) | payer MEDICARE, BC ==
[~2017-01-05] VITALS: Ht 182.9 cm; Wt 105.2 kg
[~2017-01-05 10:54] MED LIST changes: -ALBU2TAB4 PO; -FLUT1DIS INH; -FURO-151 PO; +FURO40TA5 PO; -GABA-290 PO; +GLIP10TA10 PO; -HYDR-3927 PO; +HYDR-4005 PO; +PANT40TA4 PO; -POTA10CA42 PO; +TOPI-60 PO
[2017-01-05 11:15] VITALS: BP 113/41
[2017-01-05 12:00] VITALS: BP 113/41
[2017-01-05 16:00] VITALS: BP 120/57
[2017-01-05 16:43] LABS: PHOSPHORUS 3.8 mg/dL (2.5-4.9)
[2017-01-05 17:45] LABS: HEMATOCRIT 30.3 % (42.0-52.0); HEMOGLOBIN 9.8 g/dL (14.0-18.0); MEAN CORPUSCULAR VOLUME 80.5 fL (80.0-94.0); PLATELET 229 x1000/uL (130-400); RED BLOOD CELL COUNT 3.76 mill/uL (4.7-6.1)
[2017-01-05] MEDS ORDERED: DEXTROSE 50% WATER 50ML SYRINGE IV PRN (18:15)
[2017-01-05] MEDS ORDERED: ONDANSETRON HCL 4MG/2ML VIAL IV PRN (18:15)
[2017-01-05 20:00] VITALS: BP 126/53
[2017-01-05] MEDS ORDERED: HYDROCODONE/APAP 7.5/325MG 1 TAB TABLET PO PRN ×2 (20:00→21:00)
[2017-01-05] MEDS ORDERED: TEMAZEPAM 15MG CAPSULE PO PRN (20:00)
[2017-01-05] MEDS: INSULIN LISPRO 100 UNITS/ML SUBCUT SCH (21:00)
[2017-01-05] MEDS ORDERED: ATORVASTATIN CALCIUM 40MG TABLET PO SCH (21:00)
[2017-01-05] MEDS: BLOOD SUGAR DIAGNOSTIC STRIP TEST SCH (21:15)
[2017-01-06] VITALS: BP 123/52
[2017-01-06 04:00] VITALS: BP 128/47
[2017-01-06 05:33] LABS: PROTHROMBIN TIME 10.7 sec
[2017-01-06 05:42] LABS: BASOPHILS % 0.6 % (0.0-2.0); EOSINOPHILS % 4.5 % (0.0-5.0); HEMATOCRIT. 28.5 % (42.0-52.0); HEMOGLOBIN. 9.2 g/dL (14.0-18.0); LYMPHOCYTES % 24.5 % (20.0-50.0); MEAN CORPUSCULAR HEMOGLOBIN 26.2 pg (28.0-32.0); MEAN CORPUSCULAR VOLUME 81.1 fL (80.0-94.0); MEAN PLATELET VOLUME 7.8 fl (7.4-10.4); MONOCYTES % 9.6 % (2.0-8.0); NEUTROPHILS % 60.8 % (40.0-76.0); PLATELET 225 x1000/uL (130-400); RED BLOOD CELL COUNT 3.51 mill/uL (4.7-6.1); RED CELL DISTRIBUTION WIDTH 20.6 % (11.6-14.6)
[2017-01-06] MEDS ORDERED: GLIPIZIDE 10MG TABLET PO SCH (07:20)
[2017-01-06] MEDS: BLOOD SUGAR DIAGNOSTIC STRIP TEST SCH (07:20)
[2017-01-06 07:31] LABS: CARBON DIOXIDE 31 mEq/L (21-32); CHLORIDE 95 mEq/L (98-107)
[2017-01-06] MEDS: INSULIN LISPRO 100 UNITS/ML SUBCUT SCH (07:50)
[2017-01-06 08:00] VITALS: BP 126/50
[2017-01-06] MEDS ORDERED: AMLODIPINE 10MG TABLET PO SCH (09:00)
[2017-01-06] MEDS ORDERED: LISINOPRIL 40MG TABLET PO SCH (09:00)
[2017-01-06] MEDS ORDERED: ASPIRIN 81MG TABLET PO SCH (09:00)
[2017-01-06] MEDS ORDERED: ALLOPURINOL 100 MG TABLET PO SCH (09:00)
[2017-01-06] MEDS ORDERED: GENTAMICIN SULF 40MG/ML 2ML VIAL ONE (11:26)
[2017-01-06] MEDS ORDERED: BACITRACIN ZINC 15GM TUBE TOP ONE (11:26)
[2017-01-06] MEDS ORDERED: BUPIVACAINE HCL/PF 0.25% (2.5MG/ML) 10ML ONE (11:27)
[2017-01-06] MEDS ORDERED: NORMAL SALINE 0.9% 10 ML SYR ONE (11:27)
[2017-01-06] MEDS ORDERED: LIDOCAINE HCL 1% 20ML VIAL (Pyxis) INJ ONE ×2 (11:28→13:02)
[2017-01-06] MEDS ORDERED: BACITRACIN 50,000 UNITS/VIAL ONE (11:28)
[2017-01-06] MEDS ORDERED: BUPIVACAINE HCL/PF 0.5% (5MG/ML) 10ML ONE (11:34)
[2017-01-06 12:00] VITALS: BP 119/53
[2017-01-06] MEDS ORDERED: FENTANYL CITRATE/PF 50MCG/ML 2ML VIAL ONE (12:28)
[2017-01-06] MEDS ORDERED: PROPOFOL 200MG/20ML VIAL IV ONE (12:35)
[2017-01-06] MEDS ORDERED: VANCOMYCIN HCL 500 MG/VIAL ONE ×2 (12:44→12:45)
[2017-01-06] MEDS ORDERED: SODIUM CHLORIDE 0.9% 1,000 ML IV SCH (13:15)
[2017-01-06] MEDS ORDERED: MORPHINE SULFATE 2 MG/ML CPJ (NOT FOR IM USE) IV PRN (13:15)
[2017-01-06] MEDS ORDERED: ONDANSETRON HCL 4MG/2ML VIAL IV PRN (13:15)
== END 2017-01-06 15:40 | disposition left against medical advice (07) | DRG 629 ==
LOC: 6EST 10:54
PROVIDERS: ADMIT Internal Medicine Nephrology; ATTEND Internal Medicine Nephrology
PROC: 5A1D00Z (ICD-10-PCS; 2017-01-06)
PROC: 0JDR0ZZ Extraction of Left Foot Subcutaneous Tissue and Fascia, Open Approach (ICD-10-PCS; 2017-01-06)
PROC: 0QBP0ZZ Excision of Left Metatarsal, Open Approach (ICD-10-PCS; principal; 2017-01-06 11:30)
DX: E11.621 Type 2 diabetes mellitus with foot ulcer (principal); I13.2 Hypertensive heart and chronic kidney disease with heart failure and with stage 5 chronic kidney disease, or end stage renal disease; I50.30 Unspecified diastolic (congestive) heart failure; L97.429 Non-pressure chronic ulcer of left heel and midfoot with unspecified severity; E11.22 Type 2 diabetes mellitus with diabetic chronic kidney disease; N18.6 End stage renal disease; M19.90 Unspecified osteoarthritis, unspecified site; E11.51 Type 2 diabetes mellitus with diabetic peripheral angiopathy without gangrene; J44.9 Chronic obstructive pulmonary disease, unspecified; G47.33 Obstructive sleep apnea (adult) (pediatric); E11.42 Type 2 diabetes mellitus with diabetic polyneuropathy; L97.529 Non-pressure chronic ulcer of other part of left foot with unspecified severity; L97.519 Non-pressure chronic ulcer of other part of right foot with unspecified severity; Z53.21 Procedure and treatment not carried out due to patient leaving prior to being seen by health care provider; D63.1 Anemia in chronic kidney disease; E66.9 Obesity, unspecified; F03.90 Unspecified dementia, unspecified severity, without behavioral disturbance, psychotic disturbance, mood disturbance, and anxiety; L08.9 Local infection of the skin and subcutaneous tissue, unspecified; Z99.2 Dependence on renal dialysis
CPT/HCPCS: 36415; 73630; 73721; 80048; 80053; 82962; 83735; 84100; 85025; 85027; 85610; 88304; 88311; A4216; C1893; J1580; J2704; J3010; J3370; J3490; J7030

== ENCOUNTER 2017-05-16 16:25 | Inpatient (IN) | payer MEDICARE, BC ==
[~2017-05-16] VITALS: Ht 182.9 cm; Wt 99.3 kg
[~2017-05-16 16:25] MED LIST changes: +FLUT1DIS6 IH; +GABA-290 PO; -METO-298 PO; +METO-385 PO; +POTA10CA42 PO; +PRIMIDONE PO; -TOPI-60 PO; +TOPI25TA48 PO; +TRAM50TA3 PO
[2017-05-16] MEDS ORDERED: CLONIDINE 0.1MG TABLET PO PRN (18:15)
[2017-05-16] MEDS ORDERED: DIPHENHYDRAMINE 50MG/ML VIAL IV PRN (18:15)
[2017-05-16] MEDS ORDERED: DEXTROSE 50% WATER 50ML SYRINGE IV PRN (18:15)
[2017-05-16] MEDS ORDERED: ONDANSETRON HCL 4MG/2ML VIAL IV PRN (18:15)
[2017-05-16 18:37] VITALS: BP 120/43
[2017-05-16 20:00] VITALS: BP 130/45
[2017-05-16] MEDS: GABAPENTIN 300MG CAPSULE PO SCH ×2 (21:00→22:59)
[2017-05-16] MEDS: METOPROLOL TARTRATE 50MG TABLET PO SCH (21:00)
[2017-05-16] MEDS: ATORVASTATIN CALCIUM 40MG TABLET PO SCH ×2 (21:00→22:59)
[2017-05-16] MEDS: INSULIN LISPRO 100 UNITS/ML SUBCUT SCH (21:00)
[2017-05-16] MEDS: TOPIRAMATE 25MG TABLET PO SCH (21:00)
[2017-05-16] MEDS: BLOOD SUGAR DIAGNOSTIC STRIP TEST SCH (21:34)
[2017-05-16] MEDS: INSULIN DETEMIR UD 100 UNITS/ML SYR SUBCUT SCH (22:00)
[2017-05-16] MEDS ORDERED: IPRATROPIUM/ALBUTEROL 0.5-3(2.5)MG/3ML NEB HHN PRN (23:45)
[2017-05-17] VITALS (7 sets, daily range): BP systolic 102–155; BP diastolic 33–71
[2017-05-17] MEDS: BLOOD SUGAR DIAGNOSTIC STRIP TEST SCH ×5 (03:57→21:41)
[2017-05-17] MEDS: ACETAMINOPHEN 325MG TABLET PO PRN (07:48)
[2017-05-17 07:49] LABS: HEMOGLOBIN. 7.7 g/dL (14.0-18.0); MEAN CORPUSCULAR HEMOGLOBIN 21.8 pg (28.0-32.0); MEAN CORPUSCULAR VOLUME 73.8 fL (80.0-94.0); MEAN PLATELET VOLUME 7.8 fl (7.4-10.4); PLATELET 512 x1000/uL (130-400); RED BLOOD CELL COUNT 3.52 mill/uL (4.7-6.1); RED CELL DISTRIBUTION WIDTH 20.8 % (11.6-14.6)
[2017-05-17] MEDS: INSULIN LISPRO 100 UNITS/ML SUBCUT SCH ×7 (08:31→21:00)
[2017-05-17 08:32] LABS: PHOSPHORUS 3.2 mg/dL (2.5-4.9)
[2017-05-17] MEDS: FAMOTIDINE 20MG TABLET PO SCH (09:00)
[2017-05-17] MEDS: DOCUSATE SODIUM 250MG CAPSULE PO SCH (09:00)
[2017-05-17] MEDS: FOLIC ACID/VITAMIN B COMP W-C TABLET PO SCH (09:00)
[2017-05-17] MEDS: LOSARTAN POTASSIUM 50 MG TABLET PO SCH (09:00)
[2017-05-17] MEDS: AMLODIPINE 10MG TABLET PO SCH (09:00)
[2017-05-17] MEDS: METOPROLOL TARTRATE 50MG TABLET PO SCH ×2 (09:00→21:00)
[2017-05-17] MEDS: ALLOPURINOL 100 MG TABLET PO SCH (09:00)
[2017-05-17] MEDS: ASPIRIN 81MG TABLET PO SCH (09:00)
[2017-05-17] MEDS: TAMSULOSIN HCL 0.4MG SR CAPSULE PO SCH (09:00)
[2017-05-17 10:54] LABS: PLATELET ESTIMATE INCREASED
[2017-05-17] MEDS ORDERED: INSULIN DETEMIR UD 100 UNITS/ML SYR SUBCUT SCH (12:00)
[2017-05-17] MEDS: INSULIN DETEMIR UD 100 UNITS/ML SYR SUBCUT SCH (12:16)
[2017-05-17] MEDS: METRONIDAZOLE 500 MG PREMIX 100 ML IV SCH ×2 (13:34→23:43)
[2017-05-17] MEDS ORDERED: CEFTAZIDIME PENTAHYDRATE 1 G in DEXTROSE 5% WATER 50 ML IV SCH (15:00)
[2017-05-17] MEDS ORDERED: SODIUM CHLORIDE 0.9% IV SCH (16:00)
[2017-05-17] MEDS ORDERED: AMIKACIN SULFATE IV SCH (16:00)
[2017-05-17] MEDS: MEROPENEM 500 MG in SODIUM CHLORIDE 0.9% 50 ML IV SCH (16:41)
[2017-05-17] MEDS: VANCOMYCIN HCL 1000 MG/20 ML ORAL PO SCH (18:34)
[2017-05-17] MEDS ORDERED: IPRATROPIUM/ALBUTEROL 0.5-3(2.5)MG/3ML NEB HHN PRN (20:30)
[2017-05-17] MEDS: TOPIRAMATE 25MG TABLET PO SCH (21:00)
[2017-05-17] MEDS: ATORVASTATIN CALCIUM 40MG TABLET PO SCH (21:44)
[2017-05-17] MEDS: GABAPENTIN 300MG CAPSULE PO SCH (21:45)
[2017-05-17 23:36] LABS: BG BASE EXCESS -1.3 mmol/L (-2.0-2.0); BG CARBOXYHEMOGLOBIN 0.7 % (0.5-1.5); BG DEOXYHEMOGLOBIN 3.6 % (0.0-5.0); BG FRACTION INSPIRED OXYGEN 28; BG HCO3 ACT 21.7 mmol/L (22.0-26.0); BG METHEMOGLOBIN 0.3 % (0.0-1.5); BG OXYGEN SATURATION 96.4 % (92.0-98.5); BG OXYHEMOGLOBIN 95.4 % (94.0-97.0); BG PCO2 30.1 mmHg (35.0-45.0); BG PH 7.476 (7.350-7.450); BG PO2 80.1 mmHg (75.0-100.0); BG SAMPLE SITE RIGHT RADIAL; BG TOTAL HEMOGLOBIN 8.9 g/dL (12.0-18.0); BG VENT MODE NASAL CANNULA
[2017-05-18] VITALS (7 sets, daily range): BP systolic 113–159; BP diastolic 43–58
[2017-05-18] MEDS: VANCOMYCIN HCL 1000 MG/20 ML ORAL PO SCH ×4 (01:01→18:00)
[2017-05-18] MEDS: BLOOD SUGAR DIAGNOSTIC STRIP TEST SCH ×5 (03:20→21:57)
[2017-05-18 06:35] LABS: HEMATOCRIT. 24.8 % (42.0-52.0); HEMOGLOBIN. 7.6 g/dL (14.0-18.0); MEAN CORPUSCULAR HEMOGLOBIN 22.2 pg (28.0-32.0); MEAN CORPUSCULAR VOLUME 72.6 fL (80.0-94.0); PLATELET 466 x1000/uL (130-400); RED BLOOD CELL COUNT 3.41 mill/uL (4.7-6.1); RED CELL DISTRIBUTION WIDTH 20.9 % (11.6-14.6)
[2017-05-18] MEDS: INSULIN LISPRO 100 UNITS/ML SUBCUT SCH ×7 (08:46→22:01)
[2017-05-18] MEDS: FOLIC ACID/VITAMIN B COMP W-C TABLET PO SCH (08:49)
[2017-05-18] MEDS: LOSARTAN POTASSIUM 50 MG TABLET PO SCH (08:49)
[2017-05-18] MEDS: ASPIRIN 81MG TABLET PO SCH (08:49)
[2017-05-18] MEDS: TAMSULOSIN HCL 0.4MG SR CAPSULE PO SCH (08:49)
[2017-05-18] MEDS: AMLODIPINE 10MG TABLET PO SCH (08:49)
[2017-05-18] MEDS: DOCUSATE SODIUM 250MG CAPSULE PO SCH (08:49)
[2017-05-18] MEDS: METOPROLOL TARTRATE 50MG TABLET PO SCH ×2 (08:49→22:04)
[2017-05-18] MEDS: FAMOTIDINE 20MG TABLET PO SCH (08:49)
[2017-05-18] MEDS: METRONIDAZOLE 500 MG PREMIX 100 ML IV SCH ×2 (08:50→22:02)
[2017-05-18] MEDS: ALLOPURINOL 100 MG TABLET PO SCH (08:50)
[2017-05-18 13:30] LABS: PLATELET ESTIMATE INCREASED
[2017-05-18] MEDS: MEROPENEM 500 MG in SODIUM CHLORIDE 0.9% 50 ML IV SCH (15:44)
[2017-05-18] MEDS: ACETAMINOPHEN 325MG TABLET PO PRN (16:00)
[2017-05-18] MEDS: FERROUS GLUCONATE 324MG TABLET PO SCH (17:19)
[2017-05-18] MEDS: GABAPENTIN 300MG CAPSULE PO SCH (22:02)
[2017-05-18] MEDS: INSULIN DETEMIR UD 100 UNITS/ML SYR SUBCUT SCH (22:02)
[2017-05-18] MEDS: ATORVASTATIN CALCIUM 40MG TABLET PO SCH (22:02)
[2017-05-18] MEDS: TOPIRAMATE 25MG TABLET PO SCH (22:04)
[2017-05-19] VITALS (12 sets, daily range): BP systolic 105–137; BP diastolic 43–64
[2017-05-19] MEDS: VANCOMYCIN HCL 1000 MG/20 ML ORAL PO SCH ×5 (00:24→23:01)
[2017-05-19] MEDS: BLOOD SUGAR DIAGNOSTIC STRIP TEST SCH ×5 (03:51→21:00)
[2017-05-19 06:29] LABS: HEMATOCRIT. 25.3 % (42.0-52.0); HEMOGLOBIN. 7.6 g/dL (14.0-18.0); MEAN CORPUSCULAR HEMOGLOBIN 21.9 pg (28.0-32.0); MEAN PLATELET VOLUME 7.9 fl (7.4-10.4); PLATELET 515 x1000/uL (130-400); RED BLOOD CELL COUNT 3.46 mill/uL (4.7-6.1)
[2017-05-19] MEDS: INSULIN LISPRO 100 UNITS/ML SUBCUT SCH ×7 (07:20→21:00)
[2017-05-19] MEDS: FERROUS GLUCONATE 324MG TABLET PO SCH ×3 (07:50→17:50)
[2017-05-19] MEDS: TAMSULOSIN HCL 0.4MG SR CAPSULE PO SCH (09:00)
[2017-05-19] MEDS: ALLOPURINOL 100 MG TABLET PO SCH (09:00)
[2017-05-19] MEDS: LOSARTAN POTASSIUM 50 MG TABLET PO SCH (09:00)
[2017-05-19] MEDS: ASPIRIN 81MG TABLET PO SCH (09:00)
[2017-05-19] MEDS: FOLIC ACID/VITAMIN B COMP W-C TABLET PO SCH (09:00)
[2017-05-19] MEDS: AMLODIPINE 10MG TABLET PO SCH (09:00)
[2017-05-19] MEDS: FAMOTIDINE 20MG TABLET PO SCH (09:00)
[2017-05-19] MEDS: METOPROLOL TARTRATE 50MG TABLET PO SCH ×2 (09:00→21:00)
[2017-05-19] MEDS: DOCUSATE SODIUM 250MG CAPSULE PO SCH (09:00)
[2017-05-19] MEDS: METRONIDAZOLE 500 MG PREMIX 100 ML IV SCH ×2 (10:04→21:02)
[2017-05-19 11:04] LABS: PLATELET ESTIMATE INCREASED
[2017-05-19] MEDS ORDERED: VANCOMYCIN 750 MG PREMIX 150 ML IV SCH (12:00)
[2017-05-19] MEDS ORDERED: GENTAMICIN SULF 40MG/ML 2ML VIAL ONE (12:54)
[2017-05-19] MEDS ORDERED: BUPIVACAINE HCL/PF 0.5% (5MG/ML) 10ML ONE (12:55)
[2017-05-19] MEDS ORDERED: BACITRACIN ZINC 15GM TUBE TOP ONE (12:55)
[2017-05-19] MEDS ORDERED: LIDOCAINE HCL 1% 20ML VIAL (Pyxis) INJ ONE ×2 (12:56→19:18)
[2017-05-19] MEDS ORDERED: NORMAL SALINE 0.9% 10 ML SYR ONE ×2 (12:56→12:57)
[2017-05-19] MEDS ORDERED: BACITRACIN 50,000 UNITS/VIAL ONE (12:57)
[2017-05-19] MEDS: DEXT 5%/0.9% NACL 1,000 ML IV SCH (14:19)
[2017-05-19] MEDS: MEROPENEM 500 MG in SODIUM CHLORIDE 0.9% 50 ML IV SCH (16:00)
[2017-05-19] MEDS ORDERED: PROPOFOL 200MG/20ML VIAL IV ONE (19:18)
[2017-05-19] MEDS ORDERED: ONDANSETRON HCL 4MG/2ML VIAL IV PRN (19:30)
[2017-05-19] MEDS ORDERED: HYDROMORPHONE HCL/PF 2MG/ML CPJ IV PRN (19:30)
[2017-05-19] MEDS ORDERED: LABETALOL HCL 20MG/4ML CARPUJECT IV PRN (19:30)
[2017-05-19] MEDS ORDERED: MEPERIDINE HCL/PF 25MG/ML CPJ IV PRN (19:30)
[2017-05-19] MEDS: TOPIRAMATE 25MG TABLET PO SCH (21:00)
[2017-05-19] MEDS: ATORVASTATIN CALCIUM 40MG TABLET PO SCH (21:00)
[2017-05-19] MEDS: GABAPENTIN 300MG CAPSULE PO SCH (21:00)
[2017-05-19] MEDS: HYDROMORPHONE HCL/PF 2MG/ML CPJ IV PRN (22:56)
[2017-05-19] MEDS: INSULIN DETEMIR UD 100 UNITS/ML SYR SUBCUT SCH (22:57)
[2017-05-20] VITALS (24 sets, daily range): BP systolic 86–140; BP diastolic 45–95
[2017-05-20] MEDS: IPRATROPIUM/ALBUTEROL 0.5-3(2.5)MG/3ML NEB HHN SCH ×5 (00:27→21:47)
[2017-05-20] MEDS: BLOOD SUGAR DIAGNOSTIC STRIP TEST SCH ×5 (03:16→21:39)
[2017-05-20] MEDS: VANCOMYCIN HCL 1000 MG/20 ML ORAL PO SCH ×2 (05:09→12:00)
[2017-05-20] MEDS: DEXT 5%/0.9% NACL 1,000 ML IV SCH ×2 (05:10→16:45)
[2017-05-20] MEDS: INSULIN LISPRO 100 UNITS/ML SUBCUT SCH ×7 (07:20→22:00)
[2017-05-20 07:31] LABS: MEAN CORPUSCULAR VOLUME 74.5 fL (80.0-94.0); PLATELET 463 x1000/uL (130-400); RED BLOOD CELL COUNT 3.49 mill/uL (4.7-6.1); RED CELL DISTRIBUTION WIDTH 21.7 % (11.6-14.6)
[2017-05-20] MEDS: FERROUS GLUCONATE 324MG TABLET PO SCH ×3 (07:50→17:27)
[2017-05-20] MEDS: ALLOPURINOL 100 MG TABLET PO SCH (09:00)
[2017-05-20] MEDS: TAMSULOSIN HCL 0.4MG SR CAPSULE PO SCH (09:00)
[2017-05-20] MEDS: DOCUSATE SODIUM 250MG CAPSULE PO SCH (09:00)
[2017-05-20] MEDS: METOPROLOL TARTRATE 50MG TABLET PO SCH ×2 (09:00→21:26)
[2017-05-20] MEDS: AMLODIPINE 10MG TABLET PO SCH (09:00)
[2017-05-20] MEDS: LOSARTAN POTASSIUM 50 MG TABLET PO SCH (09:00)
[2017-05-20] MEDS: FAMOTIDINE 20MG TABLET PO SCH (09:00)
[2017-05-20] MEDS: ASPIRIN 81MG TABLET PO SCH (09:00)
[2017-05-20] MEDS: FOLIC ACID/VITAMIN B COMP W-C TABLET PO SCH (09:00)
[2017-05-20] MEDS: METRONIDAZOLE 500 MG PREMIX 100 ML IV SCH (09:49)
[2017-05-20 10:21] LABS: BG BASE EXCESS -2.1 mmol/L (-2.0-2.0); BG CARBOXYHEMOGLOBIN 0.6 % (0.5-1.5); BG FRACTION INSPIRED OXYGEN 28; BG HCO3 ACT 22.1 mmol/L (22.0-26.0); BG METHEMOGLOBIN 0.2 % (0.0-1.5); BG OXYHEMOGLOBIN 95.2 % (94.0-97.0); BG PCO2 35.2 mmHg (35.0-45.0); BG PH 7.416 (7.350-7.450); BG PO2 85.1 mmHg (75.0-100.0); BG SAMPLE SITE RIGHT RADIAL; BG TOTAL HEMOGLOBIN 8.2 g/dL (12.0-18.0); BG VENT MODE NASAL CANNULA
[2017-05-20] MEDS: BUDESONIDE 0.5MG/2ML NEB HHN SCH ×2 (12:36→21:47)
[2017-05-20 15:46] LABS: T4 FREE 1.28 ng/dL (0.76-1.46)
[2017-05-20 16:28] LABS: PLATELET ESTIMATE INCREASED
[2017-05-20] MEDS: MEROPENEM 500 MG in SODIUM CHLORIDE 0.9% 50 ML IV SCH (16:45)
[2017-05-20] MEDS: ACETAMINOPHEN 325MG TABLET PO PRN (20:41)
[2017-05-20] MEDS ORDERED: VANCOMYCIN 750 MG PREMIX 150 ML IV SCH (21:00)
[2017-05-20] MEDS: ATORVASTATIN CALCIUM 40MG TABLET PO SCH (21:23)
[2017-05-20] MEDS: GABAPENTIN 300MG CAPSULE PO SCH (21:26)
[2017-05-20] MEDS: TOPIRAMATE 25MG TABLET PO SCH (21:27)
[2017-05-20] MEDS: INSULIN DETEMIR UD 100 UNITS/ML SYR SUBCUT SCH (23:00)
[2017-05-21] VITALS (11 sets, daily range): BP systolic 101–142; BP diastolic 52–71
[2017-05-21] MEDS: BLOOD SUGAR DIAGNOSTIC STRIP TEST SCH ×5 (03:01→22:00)
[2017-05-21] MEDS: DEXT 5%/0.9% NACL 1,000 ML IV SCH (04:41)
[2017-05-21 06:39] LABS: HEMATOCRIT. 27.3 % (42.0-52.0); HEMOGLOBIN. 8.2 g/dL (14.0-18.0); MEAN CORPUSCULAR HEMOGLOBIN 22.3 pg (28.0-32.0); MEAN CORPUSCULAR VOLUME 74.8 fL (80.0-94.0); PLATELET 490 x1000/uL (130-400); RED BLOOD CELL COUNT 3.65 mill/uL (4.7-6.1); RED CELL DISTRIBUTION WIDTH 21.9 % (11.6-14.6)
[2017-05-21] MEDS: BUDESONIDE 0.5MG/2ML NEB HHN SCH ×2 (08:07→20:39)
[2017-05-21] MEDS: IPRATROPIUM/ALBUTEROL 0.5-3(2.5)MG/3ML NEB HHN SCH ×4 (08:07→20:40)
[2017-05-21] MEDS: DOCUSATE SODIUM 250MG CAPSULE PO SCH (09:59)
[2017-05-21] MEDS: METOPROLOL TARTRATE 50MG TABLET PO SCH ×2 (09:59→21:05)
[2017-05-21] MEDS: AMLODIPINE 10MG TABLET PO SCH (09:59)
[2017-05-21] MEDS: FAMOTIDINE 20MG TABLET PO SCH (09:59)
[2017-05-21] MEDS: FOLIC ACID/VITAMIN B COMP W-C TABLET PO SCH (09:59)
[2017-05-21] MEDS: TAMSULOSIN HCL 0.4MG SR CAPSULE PO SCH (09:59)
[2017-05-21] MEDS: ALLOPURINOL 100 MG TABLET PO SCH (09:59)
[2017-05-21] MEDS: LOSARTAN POTASSIUM 50 MG TABLET PO SCH (09:59)
[2017-05-21] MEDS: ASPIRIN 81MG TABLET PO SCH (09:59)
[2017-05-21] MEDS: INSULIN LISPRO 100 UNITS/ML SUBCUT SCH ×7 (10:11→22:59)
[2017-05-21] MEDS: FERROUS GLUCONATE 324MG TABLET PO SCH ×3 (10:12→17:05)
[2017-05-21] MEDS: HYDROMORPHONE HCL/PF 2MG/ML CPJ IV PRN (15:03)
[2017-05-21] MEDS ORDERED: CEFTAZIDIME PENTAHYDRATE 2 G in DEXT 5% WATER 100 ML IV SCH (15:30)
[2017-05-21] MEDS: CEFTAZIDIME PENTAHYDRATE IV SCH (15:43)
[2017-05-21] MEDS: SODIUM CHLORIDE 0.9% IV SCH (15:43)
[2017-05-21 16:44] LABS: PLATELET ESTIMATE INCREASED
[2017-05-21] MEDS: AMPICILLIN 2,000 MG in SODIUM CHLORIDE 0.9% 100 ML IV SCH (16:55)
[2017-05-21] MEDS: GABAPENTIN 300MG CAPSULE PO SCH (21:03)
[2017-05-21] MEDS: TOPIRAMATE 25MG TABLET PO SCH (21:05)
[2017-05-21] MEDS: ATORVASTATIN CALCIUM 40MG TABLET PO SCH (21:07)
[2017-05-21] MEDS: INSULIN DETEMIR UD 100 UNITS/ML SYR SUBCUT SCH (22:57)
[2017-05-22] VITALS (12 sets, daily range): BP systolic 105–135; BP diastolic 39–80
[2017-05-22] MEDS: AMPICILLIN 2,000 MG in SODIUM CHLORIDE 0.9% 100 ML IV SCH ×2 (04:09→18:36)
[2017-05-22 06:38] LABS: HEMATOCRIT. 29.1 % (42.0-52.0); HEMOGLOBIN. 8.8 g/dL (14.0-18.0); MEAN CORPUSCULAR HEMOGLOBIN 22.9 pg (28.0-32.0); MEAN CORPUSCULAR VOLUME 75.4 fL (80.0-94.0); MEAN PLATELET VOLUME 8.3 fl (7.4-10.4); PLATELET 505 x1000/uL (130-400); RED BLOOD CELL COUNT 3.87 mill/uL (4.7-6.1); RED CELL DISTRIBUTION WIDTH 22.1 % (11.6-14.6)
[2017-05-22] MEDS: BLOOD SUGAR DIAGNOSTIC STRIP TEST SCH ×5 (07:29→21:36)
[2017-05-22] MEDS: IPRATROPIUM/ALBUTEROL 0.5-3(2.5)MG/3ML NEB HHN SCH ×4 (08:07→20:59)
[2017-05-22] MEDS: BUDESONIDE 0.5MG/2ML NEB HHN SCH ×2 (08:07→20:59)
[2017-05-22] MEDS: LOSARTAN POTASSIUM 50 MG TABLET PO SCH (09:00)
[2017-05-22] MEDS: METOPROLOL TARTRATE 50MG TABLET PO SCH ×2 (09:00→21:36)
[2017-05-22] MEDS: AMLODIPINE 10MG TABLET PO SCH (09:00)
[2017-05-22] MEDS: TAMSULOSIN HCL 0.4MG SR CAPSULE PO SCH (09:00)
[2017-05-22] MEDS: FOLIC ACID/VITAMIN B COMP W-C TABLET PO SCH (09:23)
[2017-05-22] MEDS: FAMOTIDINE 20MG TABLET PO SCH (09:23)
[2017-05-22] MEDS: FERROUS GLUCONATE 324MG TABLET PO SCH ×3 (09:23→18:04)
[2017-05-22] MEDS: ASPIRIN 81MG TABLET PO SCH (09:23)
[2017-05-22] MEDS: DOCUSATE SODIUM 250MG CAPSULE PO SCH (09:23)
[2017-05-22] MEDS: ALLOPURINOL 100 MG TABLET PO SCH (09:23)
[2017-05-22] MEDS: INSULIN LISPRO 100 UNITS/ML SUBCUT SCH ×7 (09:25→21:00)
[2017-05-22] MEDS: CEFTAZIDIME PENTAHYDRATE IV SCH (18:04)
[2017-05-22] MEDS: SODIUM CHLORIDE 0.9% IV SCH (18:04)
[2017-05-22] MEDS: TOPIRAMATE 25MG TABLET PO SCH (21:36)
[2017-05-22] MEDS: GABAPENTIN 300MG CAPSULE PO SCH (21:36)
[2017-05-22] MEDS: ATORVASTATIN CALCIUM 40MG TABLET PO SCH (21:36)
[2017-05-22] MEDS: INSULIN DETEMIR UD 100 UNITS/ML SYR SUBCUT SCH (21:39)
[2017-05-23] VITALS (12 sets, daily range): BP systolic 104–146; BP diastolic 45–71
[2017-05-23] MEDS: AMPICILLIN 2,000 MG in SODIUM CHLORIDE 0.9% 100 ML IV SCH ×2 (03:27→18:24)
[2017-05-23 07:03] LABS: HEMOGLOBIN. 7.9 g/dL (14.0-18.0); MEAN CORPUSCULAR VOLUME 72.9 fL (80.0-94.0); MEAN PLATELET VOLUME 8.1 fl (7.4-10.4); PLATELET 490 x1000/uL (130-400); RED BLOOD CELL COUNT 3.44 mill/uL (4.7-6.1); RED CELL DISTRIBUTION WIDTH 22.4 % (11.6-14.6)
[2017-05-23] MEDS: BLOOD SUGAR DIAGNOSTIC STRIP TEST SCH ×4 (07:30→21:00)
[2017-05-23] MEDS: BUDESONIDE 0.5MG/2ML NEB HHN SCH (08:28)
[2017-05-23] MEDS: IPRATROPIUM/ALBUTEROL 0.5-3(2.5)MG/3ML NEB HHN SCH ×4 (08:28→20:03)
[2017-05-23] MEDS: INSULIN LISPRO 100 UNITS/ML SUBCUT SCH ×7 (09:21→21:57)
[2017-05-23] MEDS: FAMOTIDINE 20MG TABLET PO SCH (09:27)
[2017-05-23] MEDS: ASPIRIN 81MG TABLET PO SCH (09:27)
[2017-05-23] MEDS: FERROUS GLUCONATE 324MG TABLET PO SCH ×3 (09:27→19:27)
[2017-05-23] MEDS: TAMSULOSIN HCL 0.4MG SR CAPSULE PO SCH (09:28)
[2017-05-23] MEDS: LOSARTAN POTASSIUM 50 MG TABLET PO SCH (09:28)
[2017-05-23] MEDS: FOLIC ACID/VITAMIN B COMP W-C TABLET PO SCH (09:28)
[2017-05-23] MEDS: METOPROLOL TARTRATE 50MG TABLET PO SCH ×2 (09:28→21:59)
[2017-05-23] MEDS: DOCUSATE SODIUM 250MG CAPSULE PO SCH (09:28)
[2017-05-23] MEDS: ALLOPURINOL 100 MG TABLET PO SCH (09:50)
[2017-05-23] MEDS: AMLODIPINE 10MG TABLET PO SCH (09:51)
[2017-05-23] MEDS: HYDROMORPHONE HCL/PF 2MG/ML CPJ IV PRN (11:54)
[2017-05-23] MEDS: CEFTAZIDIME PENTAHYDRATE IV SCH (15:43)
[2017-05-23] MEDS: SODIUM CHLORIDE 0.9% IV SCH (15:43)
[2017-05-23] MEDS: INSULIN DETEMIR UD 100 UNITS/ML SYR SUBCUT SCH (21:57)
[2017-05-23] MEDS: GABAPENTIN 300MG CAPSULE PO SCH (21:59)
[2017-05-23] MEDS: ATORVASTATIN CALCIUM 40MG TABLET PO SCH (21:59)
[2017-05-23] MEDS: TOPIRAMATE 25MG TABLET PO SCH (21:59)
[2017-05-24] VITALS (12 sets, daily range): BP systolic 106–147; BP diastolic 44–76
[2017-05-24] MEDS: AMPICILLIN 2,000 MG in SODIUM CHLORIDE 0.9% 100 ML IV SCH ×2 (03:46→15:24)
[2017-05-24] MEDS: INSULIN LISPRO 100 UNITS/ML SUBCUT SCH ×7 (07:30→21:10)
[2017-05-24] MEDS: BLOOD SUGAR DIAGNOSTIC STRIP TEST SCH ×4 (07:46→21:11)
[2017-05-24] MEDS: HYDROMORPHONE HCL/PF 2MG/ML CPJ IV PRN ×2 (08:48→15:05)
[2017-05-24] MEDS: TAMSULOSIN HCL 0.4MG SR CAPSULE PO SCH (08:49)
[2017-05-24] MEDS: FAMOTIDINE 20MG TABLET PO SCH (08:49)
[2017-05-24] MEDS: FERROUS GLUCONATE 324MG TABLET PO SCH ×3 (08:49→18:09)
[2017-05-24] MEDS: ASPIRIN 81MG TABLET PO SCH (08:50)
[2017-05-24] MEDS: METOPROLOL TARTRATE 50MG TABLET PO SCH ×2 (08:50→21:08)
[2017-05-24] MEDS: LOSARTAN POTASSIUM 50 MG TABLET PO SCH (08:50)
[2017-05-24] MEDS: AMLODIPINE 10MG TABLET PO SCH (08:50)
[2017-05-24] MEDS: FOLIC ACID/VITAMIN B COMP W-C TABLET PO SCH (08:50)
[2017-05-24] MEDS: ALLOPURINOL 100 MG TABLET PO SCH (08:52)
[2017-05-24] MEDS: DOCUSATE SODIUM 250MG CAPSULE PO SCH ×2 (09:00→15:50)
[2017-05-24] MEDS: IPRATROPIUM/ALBUTEROL 0.5-3(2.5)MG/3ML NEB HHN SCH ×4 (10:13→20:00)
[2017-05-24 10:30] LABS: PLATELET ESTIMATE INCREASED
[2017-05-24 11:00] LABS: PLATELET ESTIMATE SLIGHTLY INCREASED
[2017-05-24] MEDS: CEFTAZIDIME PENTAHYDRATE IV SCH (14:45)
[2017-05-24] MEDS: SODIUM CHLORIDE 0.9% IV SCH (14:45)
[2017-05-24] MEDS: TOPIRAMATE 25MG TABLET PO SCH (21:08)
[2017-05-24] MEDS: ATORVASTATIN CALCIUM 40MG TABLET PO SCH (21:08)
[2017-05-24] MEDS: GABAPENTIN 300MG CAPSULE PO SCH (21:08)
[2017-05-24] MEDS ORDERED: INSULIN DETEMIR UD 100 UNITS/ML SYR SUBCUT SCH (22:00)
[2017-05-25] VITALS (8 sets, daily range): BP systolic 102–148; BP diastolic 49–95
[2017-05-25] MEDS: AMPICILLIN 2,000 MG in SODIUM CHLORIDE 0.9% 100 ML IV SCH ×2 (04:23→16:50)
[2017-05-25] MEDS: BLOOD SUGAR DIAGNOSTIC STRIP TEST SCH ×3 (07:30→17:30)
[2017-05-25 07:31] LABS: HEMATOCRIT. 24.1 % (42.0-52.0); HEMOGLOBIN. 7.6 g/dL (14.0-18.0); MEAN CORPUSCULAR VOLUME 72.6 fL (80.0-94.0); PLATELET 488 x1000/uL (130-400); RED BLOOD CELL COUNT 3.32 mill/uL (4.7-6.1); RED CELL DISTRIBUTION WIDTH 22.6 % (11.6-14.6)
[2017-05-25] MEDS: FAMOTIDINE 20MG TABLET PO SCH (08:35)
[2017-05-25] MEDS: FERROUS GLUCONATE 324MG TABLET PO SCH ×3 (08:35→18:00)
[2017-05-25] MEDS: FOLIC ACID/VITAMIN B COMP W-C TABLET PO SCH (08:35)
[2017-05-25] MEDS: ASPIRIN 81MG TABLET PO SCH (08:35)
[2017-05-25] MEDS: INSULIN LISPRO 100 UNITS/ML SUBCUT SCH ×5 (08:36→17:30)
[2017-05-25] MEDS: AMLODIPINE 10MG TABLET PO SCH (09:00)
[2017-05-25] MEDS: LOSARTAN POTASSIUM 50 MG TABLET PO SCH (09:00)
[2017-05-25] MEDS: METOPROLOL TARTRATE 50MG TABLET PO SCH (09:00)
[2017-05-25] MEDS: TAMSULOSIN HCL 0.4MG SR CAPSULE PO SCH (09:00)
[2017-05-25] MEDS: IPRATROPIUM/ALBUTEROL 0.5-3(2.5)MG/3ML NEB HHN SCH ×3 (09:18→16:57)
[2017-05-25] MEDS: ALLOPURINOL 100 MG TABLET PO SCH (09:19)
[2017-05-25 12:45] LABS: PLATELET ESTIMATE INCREASED
[2017-05-25] MEDS: CEFTAZIDIME PENTAHYDRATE IV SCH (15:33)
[2017-05-25] MEDS: SODIUM CHLORIDE 0.9% IV SCH (15:33)
[2017-05-25] MEDS ORDERED: VANCOMYCIN 500 MG PREMIX 100 ML IV SCH (21:00)
== END 2017-05-25 23:06 | DRG 853 ==
LOC: 6WST 16:25 → 5EST 05-20 10:08
PROVIDERS: ADMIT Internal Medicine Nephrology; ATTEND Internal Medicine Nephrology
PROC: 5A09457 Assistance with Respiratory Ventilation, 24-96 Consecutive Hours, Continuous Positive Airway Pressure (ICD-10-PCS; principal; 2017-05-16)
PROC: 30233N1 Transfusion of Nonautologous Red Blood Cells into Peripheral Vein, Percutaneous Approach (ICD-10-PCS; 2017-05-19)
PROC: 0J9R0ZZ Drainage of Left Foot Subcutaneous Tissue and Fascia, Open Approach (ICD-10-PCS; 2017-05-20)
PROC: 5A1D70Z Performance of Urinary Filtration, Intermittent, Less than 6 Hours Per Day (ICD-10-PCS; 2017-05-20)
PROC: 5A09457 Assistance with Respiratory Ventilation, 24-96 Consecutive Hours, Continuous Positive Airway Pressure (ICD-10-PCS; 2017-05-21)
PROC: 5A1D70Z Performance of Urinary Filtration, Intermittent, Less than 6 Hours Per Day (ICD-10-PCS; 2017-05-22)
PROC: 5A1D70Z Performance of Urinary Filtration, Intermittent, Less than 6 Hours Per Day (ICD-10-PCS; 2017-05-23)
PROC: 5A1D70Z Performance of Urinary Filtration, Intermittent, Less than 6 Hours Per Day (ICD-10-PCS; 2017-05-25)
DX: A41.9 Sepsis, unspecified organism (principal); G92 Toxic encephalopathy; E43 Unspecified severe protein-calorie malnutrition; I13.2 Hypertensive heart and chronic kidney disease with heart failure and with stage 5 chronic kidney disease, or end stage renal disease; I95.9 Hypotension, unspecified; E11.42 Type 2 diabetes mellitus with diabetic polyneuropathy; N25.81 Secondary hyperparathyroidism of renal origin; E11.22 Type 2 diabetes mellitus with diabetic chronic kidney disease; E11.40 Type 2 diabetes mellitus with diabetic neuropathy, unspecified; N18.6 End stage renal disease; I50.30 Unspecified diastolic (congestive) heart failure; L02.612 Cutaneous abscess of left foot; M86.672 Other chronic osteomyelitis, left ankle and foot; M48.02 Spinal stenosis, cervical region; Z99.2 Dependence on renal dialysis; M85.80 Other specified disorders of bone density and structure, unspecified site; M46.90 Unspecified inflammatory spondylopathy, site unspecified; D63.8 Anemia in other chronic diseases classified elsewhere; E11.51 Type 2 diabetes mellitus with diabetic peripheral angiopathy without gangrene; E11.621 Type 2 diabetes mellitus with foot ulcer; E11.65 Type 2 diabetes mellitus with hyperglycemia; E11.69 Type 2 diabetes mellitus with other specified complication; E66.9 Obesity, unspecified; E78.5 Hyperlipidemia, unspecified; F03.90 Unspecified dementia, unspecified severity, without behavioral disturbance, psychotic disturbance, mood disturbance, and anxiety; G47.33 Obstructive sleep apnea (adult) (pediatric); J44.9 Chronic obstructive pulmonary disease, unspecified; L97.529 Non-pressure chronic ulcer of other part of left foot with unspecified severity; M10.9 Gout, unspecified; B96.5 Pseudomonas (aeruginosa) (mallei) (pseudomallei) as the cause of diseases classified elsewhere; B95.2 Enterococcus as the cause of diseases classified elsewhere; N40.0 Benign prostatic hyperplasia without lower urinary tract symptoms; Z87.891 Personal history of nicotine dependence; Z89.422 Acquired absence of other left toe(s); Z91.81 History of falling; Z68.29 Body mass index [BMI] 29.0-29.9, adult; Z22.322 Carrier or suspected carrier of Methicillin resistant Staphylococcus aureus
CPT/HCPCS: 36415; 36600; 71010; 80048; 80202; 82375; 82533; 82550; 82805; 82962; 83605; 83615; 83735; 84100; 84132; 84134; 84439; 84443; 84550; 85007; 85025; 85027; 86850; 86900; 86920; 87040; 87070; 87075; 87077; 87186; 87205; 94640; 94660; 97022; 97162; A4216; A6261; J0278; J0290; J0713; J1170; J1200; J1580; J1815; J2185; J2704; J3370; J3490; J7030; J7040; J7042; J7050; J7060; J7620; J7626; P9016

== ENCOUNTER → 2017-09-25 | Day surgery (SDC) | payer MEDICARE, BC ==
[2017-09-25] VITALS (11 sets, daily range): BP systolic 96–111; BP diastolic 39–48
[~2017-09-25] VITALS: Ht 182.9 cm; Wt 81.6 kg
[~2017-09-25] MED LIST changes: -ALLO100T PO; -AMLO10TA80 PO; -ASPI-1079 PO; +FENTANYL CITRATE/PF 50MCG/ML 2ML VIAL IV ONE; +FENTANYL CITRATE/PF 50MCG/ML 2ML VIAL ONE; -FERR324T11 PO; -FLUT1DIS6 IH; -FLUT9.9S NS; -FURO40TA5 PO; -GABA-290 PO; -GLIP10TA10 PO; +HEPARIN 1000 UNITS/ML 10ML IV ONE; +HEPARIN 1000 UNITS/ML 10ML ONE; +HEPARIN 5000 UNITS/ML VIAL IV ONE; -HYDR-4005 PO; -INSASP SUBCUT; +IOHEXOL-300 100 ML BOTTLE ONE; +LIDOCAINE HCL/PF 1% 10 MG/ML 5ML VIAL ONE; -LIP40 PO; -LISI40TA4 PO; -LORA10CA PO; -LOSA50TA20 PO; -METO-385 PO; -PANT40TA4 PO; -POTA10CA42 PO; -PRIMIDONE PO; -RED600CA5 PO; +SODIUM BICARBONATE 4% (2.4MEQ) 5ML VIAL IV ONE; -TAMS-11 PO; -TOPI25TA48 PO; -TRAM50TA3 PO
[2017-09-25 13:40] LABS: INR 1.3; PARTIAL THROMBOPLASTIN TIME 37.1 sec (23.4-31.0); PROTHROMBIN TIME 13.3 sec (9.4-11.6)
== END | disposition home or self-care (01) ==
LOC: EDSTATUS 13:10 → RADANGIO 13:11
PROVIDERS: ATTEND Internal Medicine Nephrology
DX: T82.868A Thrombosis due to vascular prosthetic devices, implants and grafts, initial encounter (principal); Y83.2 Surgical operation with anastomosis, bypass or graft as the cause of abnormal reaction of the patient, or of later complication, without mention of misadventure at the time of the procedure; Z89.422 Acquired absence of other left toe(s); D63.8 Anemia in other chronic diseases classified elsewhere; N40.0 Benign prostatic hyperplasia without lower urinary tract symptoms; J44.9 Chronic obstructive pulmonary disease, unspecified; Z99.2 Dependence on renal dialysis; I13.2 Hypertensive heart and chronic kidney disease with heart failure and with stage 5 chronic kidney disease, or end stage renal disease; N18.6 End stage renal disease; E11.22 Type 2 diabetes mellitus with diabetic chronic kidney disease; I50.30 Unspecified diastolic (congestive) heart failure; E11.42 Type 2 diabetes mellitus with diabetic polyneuropathy; E11.621 Type 2 diabetes mellitus with foot ulcer; E11.65 Type 2 diabetes mellitus with hyperglycemia; Z87.891 Personal history of nicotine dependence; M10.9 Gout, unspecified; E66.9 Obesity, unspecified; Z68.29 Body mass index [BMI] 29.0-29.9, adult; G47.33 Obstructive sleep apnea (adult) (pediatric); M86.672 Other chronic osteomyelitis, left ankle and foot; Z79.4 Long term (current) use of insulin
CPT/HCPCS: 36415; 36906; 85610; 85730; 94002; 99152; 99153; C1725; C1766; C1769; C1876; J1644; J3490; J7050; Q9967; J3010